=== PATIENT | female | born 1925 | race Caucasian/White ===

== ENCOUNTER 2017-06-17 17:34 | Inpatient (IN) | payer MEDICARE, MEDICAID ==
[~2017-06-17] VITALS: Ht 165.1 cm; Wt 92.7 kg
[~2017-06-17 17:34] MED LIST: ATEN25TA PO; PRED10PA PO
[2017-06-17 18:32] VITALS: BP 162/81; PULSE 120; RESP 24; TEMP 98.1; O2SAT 96
[2017-06-17 19:18] LABS: AUTOMATED NEUTROPHIL # 5.7 TH/MM3 (1.8-7.7); BASOPHIL # 0.1 TH/MM3 (0-0.2); BASOPHIL % 0.8 % (0.0-2.0); EOSINOPHIL % 0.1 % (0.0-4.0); HEMATOCRIT 39.6 % (35.0-46.0); HEMOGLOBIN 13.6 GM/DL (11.6-15.3); LYMPH % 8.7 % (9.0-44.0); LYMPHOCYTE # 0.7 TH/MM3 (1.0-4.8); MEAN CELL VOLUME 100.6 FL (80.0-100.0); MEAN CORPUSCULAR HEMOGLOBIN 34.4 PG (27.0-34.0); MEAN CORPUSCULAR HGB CONC 34.2 % (32.0-36.0); MEAN PLATELET VOLUME 8.9 FL (7.0-11.0); MONO % 17.8 % (0.0-8.0); MONOCYTE # 1.4 TH/MM3 (0-0.9); NEUT % 72.6 % (16.0-70.0); PLATELET COUNT 100 TH/MM3 (150-450); RED BLOOD COUNT 3.94 MIL/MM3 (4.00-5.30); RED CELL DISTRIBUTION WIDTH 15.1 % (11.6-17.2); WHITE BLOOD COUNT 7.8 TH/MM3 (4.0-11.0)
[2017-06-17 19:43] LABS: TROPONIN I 0.03 NG/ML (0.02-0.05)
[2017-06-17] MEDS ORDERED: DILTIAZEM HCL 25 MG/5 ML VIAL IV ONE (19:45)
[2017-06-17 19:46] LABS: BICARBONATE 25.2 MEQ/L (21.0-32.0); BLOOD UREA NITROGEN 14 MG/DL (7-18); CALCIUM 8.2 MG/DL (8.5-10.1); CHLORIDE 105 MEQ/L (98-107); CREATININE 1.01 MG/DL (0.50-1.00); GLOMERULAR FILTRATION RATE 52 ML/MIN (>89); GLUCOSE,RANDOM 102 MG/DL (74-106); SODIUM (NA) 138 MEQ/L (136-145)
[2017-06-17 19:52] VITALS: BP 170/79; PULSE 111; RESP 18; O2SAT 97
--- NOTE | 2017-06-17 19:58 | PD ---
HPI Chief Complaint: Respiratory Symptoms Time Seen by Provider: 19:13 Travel History International Travel<30 days: No Contact w/Intl Traveler<30days: No Traveled to known affect area: No History of Present Illness HPI 89yo F with unknown PMH presents to the ED stating she has pneumonia. States she was at another hospital 2 weeks ago and she had pneumonia and they didnt do anything. Said she is a little sob. Asked if she has chest pain, she points to midsternum and said a little. When ask further details, she said I dont know. She said she lives with her son. Poor historian. +Cough. Denies any fever, abdominal pain, focal weakness or numbness. PFSH Social History Tobacco Use: No Allergies-Medications (Allergen,Severity, Reaction): Coded Allergies: Penicillins (Verified Allergy, Intermediate, Swelling, 06/17/17) aspirin (Verified Allergy, Mild, 06/17/17) Sulfa (Sulfonamide Antibiotics) (Verified Allergy, Unknown, 06/17/17) Reported Meds & Prescriptions Reported Meds & Active Scripts Active Reported Aspirin 81 Mg Chew 81 Mg CHEW DAILY Review of Systems Except as stated in HPI: all other systems reviewed are Neg Physical Exam Narrative GENERAL: 89yo F in mild distress. SKIN: Focused skin assessment warm/dry. HEAD: Atraumatic. Normocephalic. EYES: Pupils equal and round. No scleral icterus. No injection or drainage. ENT: No nasal bleeding or discharge. Mucous membranes pink and moist. NECK: Trachea midline. No JVD. CARDIOVASCULAR: Irregular heart rate fluctuating from low 100s to 120s. RESPIRATORY: + accessory muscle use. Clear to auscultation. Breath sounds equal bilaterally. GASTROINTESTINAL: Abdomen soft, non-tender, nondistended. No rebound tenderness or guarding. MUSCULOSKELETAL: No obvious deformities. No clubbing. No cyanosis. +Bilateral lower extremity edema. NEUROLOGICAL: AAOx2. No obvious cranial nerve deficits. Motor grossly within normal limits in all extremities. Sensation intact. Normal speech. Data Data Last Documented VS Vital Signs Date Time Temp Pulse Resp B/P (MAP) Pulse Ox O2 Delivery O2 Flow Rate FiO2 06/17/17 19:52 116 18 96 Nasal Cannula 2.00 06/17/17 19:52 170/79 (109) 06/17/17 18:32 98.1 Orders Orders Electrocardiogram (06/17/17 18:53) Complete Blood Count With Diff (06/17/17 18:53) Basic Metabolic Panel (Bmp) (06/17/17 18:53) Ckmb (Isoenzyme) Profile (06/17/17 18:53) Troponin I (06/17/17 18:53) Chest, Single Ap (06/17/17 18:53) Iv Access Insert/Monitor (06/17/17 18:53) B-Type Natriuretic Peptide (06/17/17 18:53) Prothrombin Time / Inr (Pt) (06/17/17 19:29) Act Partial Throm Time (Ptt) (06/17/17 19:29) CKMB (06/17/17 18:55) CKMB% (06/17/17 18:55) Diltiazem Inj (Cardizem Inj) (06/17/17 20:00) Ondansetron Inj (Zofran Inj) (06/17/17 20:15) Admit Order (Ed Use Only) (06/17/17 21:12) Vital Signs (Adult) Q15MX4,Q4H (06/17/17 21:13) Exposure Machine Operator / Telemetry TAMMY.Q8H (06/17/17 21:13) Cardiac Rhythm TAMMY.Q8H (06/17/17 21:13) Notify Dr: Other (06/17/17 21:13) Diltiazem Inj (Cardizem Inj) (06/17/17 21:15) Labs Laboratory Tests Test 06/17/17 18:55 White Blood Count 7.8 TH/MM3 Red Blood Count 3.94 MIL/MM3 Hemoglobin 13.6 GM/DL Hematocrit 39.6 % Mean Corpuscular Volume 100.6 FL Mean Corpuscular Hemoglobin 34.4 PG Mean Corpuscular Hemoglobin Concent 34.2 % Red Cell Distribution Width 15.1 % Platelet Count 100 TH/MM3 Mean Platelet Volume 8.9 FL Neutrophils (%) (Auto) 72.6 % Lymphocytes (%) (Auto) 8.7 % Monocytes (%) (Auto) 17.8 % Eosinophils (%) (Auto) 0.1 % Basophils (%) (Auto) 0.8 % Neutrophils # (Auto) 5.7 TH/MM3 Lymphocytes # (Auto) 0.7 TH/MM3 Monocytes # (Auto) 1.4 TH/MM3 Eosinophils # (Auto) 0.0 TH/MM3 Basophils # (Auto) 0.1 TH/MM3 CBC Comment AUTO DIFF Differential Comment AUTO DIFF CONFIRMED Blood Urea Nitrogen 14 MG/DL Creatinine 1.01 MG/DL Random Glucose 102 MG/DL Calcium Level 8.2 MG/DL Sodium Level 138 MEQ/L Potassium Level 3.8 MEQ/L Chloride Level 105 MEQ/L Carbon Dioxide Level 25.2 MEQ/L Anion Gap 8 MEQ/L Estimat Glomerular Filtration Rate 52 ML/MIN Total Creatine Kinase 135 U/L Creatine Kinase MB 3.0 NG/ML Troponin I 0.03 NG/ML B-Type Natriuretic Peptide 191 PG/ML [facility] Medical Decision Making Medical Screen Exam Complete: Yes Emergency Medical Condition: Yes Interpretation(s) EKG: Afib at 124bpm. Normal axis. TWI diffusely. Differential Diagnosis Pneumonia vs. CHF exacerbation vs. ACS vs. afib RVR Narrative Course 89yo F with sob and chest pain for unknown about of time. Pt has afib on the monitor and heart rate is in the 110s to 120s. Unable to obtain good history from patient and there is no family member. Pt has not been here before. Will give cardizem 15mg IV since blood pressure is good to control heart rate. Will do cardiac work up. Labs reviewed, no leukocytosis. H/H normal. BNP mildly elevated at 191. Troponin negative. BMP unremarkable. CXR showed clear lungs. Pt was feeling nauseous so gave pt zofran. Pt given 15mg of cardizem and heart rate has decreased but fluctuates between 100s and 115. I called pt's daughter Mrs. Lolita Omalley at [phone] and she does not know her history well. Said she does have a history of irregular heart rate and was on anticoagulation but not sure what she is on now. Said she was recently admitted to [facility] and we will try to get record from them. She said she is not coming to the hospital since she is sick. Said her brother who lives a few blocks from her is also not coming to the hospital. Pt lives by herself with a room that she rented out. We call [facility] and they said they have no records of her. Pt reevaluated at bedside and HR is still high to 120s now. Will place on cardizem drip and admit. Discussed with Dr. Mackenzie and accepted to her service. Critical Care Narrative Aggregate critical care time was 35 minutes. Time to perform other separately billable procedures was not included in the critical care time. My time did not include minutes spent treating any other patients simultaneously or on activities that did not directly contribute to the patient's treatment. The services I provided to this patient were to treat and/or prevent clinically significant deterioration that could result in: cardiovascular collapse or . I provided critical care services requiring my management, as noted below: Chart data review, documentation time, medication orders and management, vital sign assessments/reviewing monitor data, ordering and reviewing lab tests, ordering and interpreting/reviewing x-rays and diagnostic studies, care of the patient and discussion of the patient with the admitting physicians. Diagnosis Primary Impression: Atrial fibrillation with RVR Admitting Information Admitting Physician Requests: Stacie Roger DO Jun 17, 2017 19:58
[2017-06-17] MEDS ORDERED: ASPI-516 CHEW (20:00)
[2017-06-17] MEDS ORDERED: DILTIAZEM HCL 50 MG/10 ML VIAL IV ONE (20:00)
[2017-06-17] MEDS ORDERED: ONDANSETRON HCL 4 MG/2 ML VIAL IV PUSH ONE (20:15)
--- NOTE | 2017-06-17 20:25 | RADRPT ---
EXAM DATE/TIME: 06/17/2017 20:02 [place] COMPARISON: No previous studies available for comparison. INDICATIONS : Short of breath. MEDICAL HISTORY : None. SURGICAL HISTORY : None. ENCOUNTER: Initial ACUITY: 1 day PAIN SCORE: 0/10 LOCATION: Bilateral chest FINDINGS: A single view of the chest demonstrates the lungs to be symmetrically aerated without evidence of mas s, infiltrate or effusion. The cardiomediastinal contours are unremarkable. Osseous structures are intact. CONCLUSION: The lungs are clear. Randall Velarde MD on June 17, 2017 at 20:24 Board Certified Radiologist. This report was verified electronically.
[2017-06-17] MEDS ORDERED: DILTIAZEM INJ 125 MG in SODIUM CHLORIDE 0.9% INJ 100 ML IV PRN (21:15)
[2017-06-17] MEDS ORDERED: LACTULOSE SYRUP 20 GM/30 ML CUP PO PRN (21:30)
[2017-06-17] MEDS ORDERED: SODIUM CHLORIDE 0.9% FLUSH 10 ML FLUSH IV FLUSH PRN (21:30)
[2017-06-17] MEDS ORDERED: BISACODYL 10 MG SUPP RECTAL PRN (21:30)
[2017-06-17] MEDS ORDERED: MAGNESIUM HYDROXIDE SUSP 30 ML CUP PO PRN (21:30)
[2017-06-17] MEDS ORDERED: ACETAMINOPHEN 325 MG TAB PO PRN (21:30)
[2017-06-17] MEDS ORDERED: ACETAMINOPHEN/HYDROcodone 325 MG/5 MG TAB PO PRN (21:30)
[2017-06-17] MEDS ORDERED: SENNOSIDES 8.6 MG TAB PO PRN (21:30)
--- NOTE | 2017-06-17 21:33 | HHI.HP ---
HPI Service [facility] Primary Care Physician Ranulfo Winters MD Admission Diagnosis Afib RVR, chest pain Diagnoses: (1) Atrial fibrillation with RVR Diagnosis: Principal (2) Chest pain Diagnosis: Principal (3) Thrombocytopenia Diagnosis: Principal (4) Renal insufficiency Diagnosis: Principal Travel History International Travel<30 Days: No Contact w/Intl Traveler <30 Da: No Traveled to Known Affected Are: No History of Present Illness This is an 89-year-old female with a PMH of A. fib on Eliquis was brought to the ER by EMS secondary to chest pain. Patient is extremely poor historian, unable to provide much history, however she is able to tell me she's had substernal chest pain for approximately 1 week. States pain is intermittent, 8/ 10, non-radiating, associated w/ cough. Reports being seen in [facility] last week for similar symptoms and was found to have PNA but "they didn't do anything ". On arrival, found to be in A-fib w/ RVR, HR 120-130's. Pt unable to tell me if she has h/o A-fib however per review of discharge papers from [facility] , she is on multiple medications including Amiodarone, Cardizem and Eliquis. BP currently 162/81, HR 120, O2 sat 96% on RA, Afebrile. DC essentially unremarkable except for platelets 100, no previous labs for comparison. Chemistry unremarkable except for creatinine 1.01, GFR 52. Troponin 0.03. BNP 191. CXR with no acute findings. S/p Cardizem in ER however HR 120's, started on Cardizem gtt. States she follows w/ a [facility] Technician at , but unable to tell me his name, states it "starts with an S". Review of Systems Except as stated in HPI: all other systems reviewed are Neg ROS: 14 point review of systems otherwise negative. Past Family Social History Past Medical History PMH: A. fib on Eliquis Past Surgical History PAST SURGICAL HISTORY: Hiatal Hernia Repair, Appendectomy, Cholecystectomy, Hysterectomy Allergies: Coded Allergies: Penicillins (Verified Allergy, Intermediate, Swelling, 06/17/17) aspirin (Verified Allergy, Mild, 06/17/17) Sulfa (Sulfonamide Antibiotics) (Verified Allergy, Unknown, 06/17/17) Family History PAST FAMILY HISTORY: Reviewed. No h/o DM or CAD Social History PAST SOCIAL HISTORY: Negative for alcohol, tobacco or drugs. Physical Exam Vital Signs Vital Signs Date Time Temp Pulse Resp B/P (MAP) Pulse Ox O2 Delivery O2 Flow Rate FiO2 06/17/17 19:52 116 18 96 Nasal Cannula 2.00 06/17/17 19:52 111 18 170/79 (109) 97 Nasal Cannula 2.00 06/17/17 18:32 98.1 120 24 162/81 (108) 96 Physical Exam PE: GENERAL: Elderly white female in no acute distress, very [place]. HEENT: PERRLA, EOMI. No scleral icterus or conjunctival pallor. No lid lag or facial droop. CARDIOVASCULAR: Irregularly irregular, in A. fib. No obvious murmurs to auscultation. No chest tenderness to palpation. RESPIRATORY: No obvious rhonchi or wheezing. Clear to auscultation. Breath sounds equal bilaterally. GASTROINTESTINAL: Abdomen soft, non-tender, nondistended. BS normal. MUSCULOSKELETAL: Extremities without clubbing, cyanosis. 2+ edema. No obvious deformities. NEUROLOGICAL: Awake, alert and oriented x4. No focal neurologic deficits. Moving both upper and lower extremities spontaneously. Laboratory Laboratory Tests Test 06/17/17 18:55 White Blood Count 7.8 Red Blood Count 3.94 Hemoglobin 13.6 Hematocrit 39.6 Mean Corpuscular Volume 100.6 Mean Corpuscular Hemoglobin 34.4 Mean Corpuscular Hemoglobin Concent 34.2 Red Cell Distribution Width 15.1 Platelet Count 100 Mean Platelet Volume 8.9 Neutrophils (%) (Auto) 72.6 Lymphocytes (%) (Auto) 8.7 Monocytes (%) (Auto) 17.8 Eosinophils (%) (Auto) 0.1 Basophils (%) (Auto) 0.8 Neutrophils # (Auto) 5.7 Lymphocytes # (Auto) 0.7 Monocytes # (Auto) 1.4 Eosinophils # (Auto) 0.0 Basophils # (Auto) 0.1 CBC Comment AUTO DIFF Differential Comment AUTO DIFF CONFIRMED Blood Urea Nitrogen 14 Creatinine 1.01 Random Glucose 102 Calcium Level 8.2 Sodium Level 138 Potassium Level 3.8 Chloride Level 105 Carbon Dioxide Level 25.2 Anion Gap 8 Estimat Glomerular Filtration Rate 52 Total Creatine Kinase 135 Creatine Kinase MB 3.0 Troponin I 0.03 B-Type Natriuretic Peptide 191 Result Diagram: 06/17/17185406/17/171854 Caprini VTE Risk Assessment Caprini VTE Risk Assessment: Mod/High Risk (score >= 2) Caprini Risk Assessment Model Point Value = 1 Point Value = 2 Point Value = 3 Point Value = 5 Age 41-60 Minor surgery BMI > 25 kg/m2 Swollen legs Varicose veins or History of unexplained or recurrent spontaneous Oral contraceptives or hormone replacement Sepsis (< 1 month) Serious lung disease, including pneumonia (< 1 month) Abnormal pulmonary function Acute myocardial infarction Congestive heart failure (< 1 month) History of inflammatory bowel disease Medical patient at bed rest Age 61-74 Arthroscopic surgery Major open surgery (> 45 min) Laparoscopic surgery (> 45 min) Malignancy Confined to bed (> 72 hours) Immobilizing plaster cast Central venous access Age >= 75 History of VTE Family history of VTE Factor V Leiden Prothrombin [id number] Lupus anticoagulant Anticardiolipin antibodies Elevated serum homocysteine Heparin-induced thrombocytopenia Other congenital or acquired thrombophilia Stroke (< 1 month) Elective arthroplasty Hip, pelvis, or leg fracture Acute spinal cord injury (< 1 month) Prophylaxis Regimen Total Risk Factor Score Risk Level Prophylaxis Regimen 0-1 Low Early ambulation 2 Moderate Order ONE of the following: *Sequential Compression Device (SCD) *Heparin 5000 units SQ BID 3-4 Higher Order ONE of the following medications: *Heparin 5000 units SQ TID *Enoxaparin/Lovenox 40 mg SQ daily (WT < 150 kg, CrCl > 30 mL/min) *Enoxaparin/Lovenox 30 mg SQ daily (WT < 150 kg, CrCl > 10-29 mL/min) *Enoxaparin/Lovenox 30 mg SQ BID (WT < 150 kg, CrCl > 30 mL/min) AND/OR *Sequential Compression Device (SCD) 5 or more Highest Order ONE of the following medications: *Heparin 5000 units SQ TID (Preferred with Epidurals) *Enoxaparin/Lovenox 40 mg SQ daily (WT < 150 kg, CrCl > 30 mL/min) *Enoxaparin/Lovenox 30 mg SQ daily (WT < 150 kg, CrCl > 10-29 mL/min) *Enoxaparin/Lovenox 30 mg SQ BID (WT < 150 kg, CrCl > 30 mL/min) AND *Sequential Compression Device (SCD) Assessment and Plan Problem List: (1) Atrial fibrillation with RVR ICD Code: I48.91 - Unspecified atrial fibrillation Status: Acute (2) Chest pain ICD Code: R07.9 - Chest pain, unspecified (3) Renal insufficiency ICD Code: N28.9 - Disorder of kidney and ureter, unspecified (4) Thrombocytopenia ICD Code: D69.6 - Thrombocytopenia, unspecified Assessment and Plan A/P: 1. A-fib w/ RVR: h/o A-fib per records from recent presentation to [facility] , on Amiodarone 200mg qd, Diltiazem 360mg qd and Eliquis 2.5mg bid. Currently on Cardizem gtt, wean as tolerated. Admit to [facility]IC, Telemetry. Follows w/ [facility] Technician at , unable to tell me who. Will consult Cardiology for further recommendations. 2. Chest Pain: Likely secondary to dysrhythmia. R/o ACS. Initial troponin negative, check serial cardiac enzymes to eval for underlying ischemia. NTG/ Morphine prn as needed. ALLERGY to ASA. Resume home Plavix. 3. Renal Insufficiency: Creatinine 1.01, no previous labs for comparison. IVF , caution with fluid overload, repeat labs in am. 4. Thrombocytopenia: Platelets 100, no previous labs for comparison. No active bleeding. Will monitor closely. Repeat labs in a.m. 5. DVT Prophylaxis: On Eliquis 6. Social work for d/c planning as needed. 7. Case discussed w/ ER physician at length, labs/records/imaging reviewed by ri Physician Certification 2 Midnight Certification Type: Admission for Inpatient Services Order for Inpatient Services The services are ordered in accordance with Medicare regulations or non- Medicare payer requirements, as applicable. In the case of services not specified as inpatient-only, they are appropriately provided as inpatient services in accordance with the 2-midnight benchmark. Estimated LOS (days): 2 days is the estimated time the patient will need to remain in the hospital, assuming treatment plan goals are met and no additional complications. Post-Hospital Plan: Not yet determined Yolanda Mackenzie MD Jun 17, 2017 21:33
[2017-06-17 21:43] VITALS: BP 166/98; PULSE 114; RESP 18; O2SAT 94
[2017-06-17 22:30] VITALS: BP 177/76; PULSE 105; RESP 16; O2SAT 92
[2017-06-17 22:57] LABS: INTERNATIONAL NORMALIZED RATIO 1.4 RATIO; PROTHROMBIN TIME - PATIENT 13.8 SEC (9.8-11.6)
[2017-06-17 23:02] VITALS: BP 128/74; PULSE 98; RESP 18; O2SAT 88
[2017-06-18] VITALS (14 sets, daily range): BP systolic 151–172; BP diastolic 70–81; PULSE 73–112; RESP 16–23; TEMP 97.6–98.3; O2SAT 94–97
[2017-06-18] MEDS ORDERED: DILT120T PO (01:02)
[2017-06-18] MEDS ORDERED: PLAV75TA29 PO (01:02)
[2017-06-18] MEDS ORDERED: DIAZ5TAB PO (01:02)
[2017-06-18] MEDS ORDERED: AMIO200T PO (01:02)
[2017-06-18] MEDS ORDERED: APIX2.5T PO (01:02)
[2017-06-18] MEDS: ZOLPIDEM TARTRATE 5 MG TAB PO PRN ×2 (04:30→22:44)
[2017-06-18 05:09] LABS: AUTOMATED NEUTROPHIL # 5.3 TH/MM3 (1.8-7.7); BASOPHIL # 0.1 TH/MM3 (0-0.2); BASOPHIL % 1.5 % (0.0-2.0); EOSINOPHIL % 0.2 % (0.0-4.0); HEMOGLOBIN 12.9 GM/DL (11.6-15.3); LYMPH % 9.8 % (9.0-44.0); LYMPHOCYTE # 0.7 TH/MM3 (1.0-4.8); MEAN CELL VOLUME 100.9 FL (80.0-100.0); MEAN CORPUSCULAR HEMOGLOBIN 34.3 PG (27.0-34.0); MEAN PLATELET VOLUME 9.1 FL (7.0-11.0); MONO % 13.1 % (0.0-8.0); MONOCYTE # 0.9 TH/MM3 (0-0.9); NEUT % 75.4 % (16.0-70.0); PLATELET COUNT 82 TH/MM3 (150-450); RED BLOOD COUNT 3.77 MIL/MM3 (4.00-5.30); RED CELL DISTRIBUTION WIDTH 14.9 % (11.6-17.2); WHITE BLOOD COUNT 7.1 TH/MM3 (4.0-11.0)
[2017-06-18 05:36] LABS: ALBUMIN 2.3 GM/DL (3.4-5.0); ALT (GPT) 54 U/L (10-53); AST (GOT) 48 U/L (15-37); BLOOD UREA NITROGEN 12 MG/DL (7-18); CALCIUM 7.6 MG/DL (8.5-10.1); CHLORIDE 106 MEQ/L (98-107); CREATININE 0.91 MG/DL (0.50-1.00); GLOMERULAR FILTRATION RATE 58 ML/MIN (>89); GLUCOSE,RANDOM 83 MG/DL (74-106); SODIUM (NA) 139 MEQ/L (136-145)
[2017-06-18 05:39] LABS: ALKALINE PHOSPHATASE 140 U/L (45-117); TOTAL BILIRUBIN ADULT 0.6 MG/DL (0.2-1.0); TOTAL PROTEIN 5.3 GM/DL (6.4-8.2); TROPONIN I 0.04 NG/ML (0.02-0.05)
[2017-06-18] MEDS ORDERED: HEPARIN SODIUM - SQ 10,000 UNITS/ML VIAL SQ SCH (09:00)
[2017-06-18] MEDS: SODIUM CHLORIDE 0.9% FLUSH 10 ML FLUSH IV FLUSH SCH ×2 (09:00→22:46)
[2017-06-18 09:03] LABS: BANDS 6 % (0-6); LYMPHOCYTES 3 % (9-44); MONOCYTES 10 % (0-8); MYELOCYTES 2 % (0-0); NEUTROPHIL # MANUAL DIFF 6.2 TH/MM3 (1.8-7.7); POLYS (SEG NEUTROPHILS) 79 % (16-70)
[2017-06-18] MEDS: APIXABAN 2.5 MG TABLET PO SCH ×2 (09:07→22:45)
[2017-06-18] MEDS: CLOPIDOGREL 75 MG TAB PO SCH (09:08)
[2017-06-18] MEDS: DOCUSATE SODIUM 50 MG/SENNA 8.6 MG TAB PO SCH ×2 (09:08→22:45)
--- NOTE | 2017-06-18 09:44 | HHI.PR ---
Subjective Remarks Follow up a-fib with RVR. Patient states that she feels a little better today. She is a poor historian and changes the description of her symptoms frequently. She describes chest discomfort, but then refers to it as shortness of breath. She states that she "cannot walk". She states that she was recently admitted to a different hospital and reportedly had a thoracentesis. Objective Vitals Vital Signs Date Time Temp Pulse Resp B/P (MAP) Pulse Ox O2 Delivery O2 Flow Rate FiO2 06/18/17 07:00 92 16 151/70 (97) 96 Nasal Cannula 2.00 06/18/17 06:14 99 16 172/78 (109) 96 Nasal Cannula 2.00 06/18/17 03:00 99 16 158/71 (100) 97 Nasal Cannula 2.00 06/18/17 02:30 98 16 160/76 (104) 97 Nasal Cannula 2.00 06/18/17 02:00 106 16 152/71 (98) 97 Nasal Cannula 2.00 06/18/17 01:50 97 Nasal Cannula 2.00 06/18/17 01:15 116 158/72 06/18/17 00:30 110 16 172/81 (111) 97 06/17/17 23:02 88 Nasal Cannula 2.00 06/17/17 23:02 98 18 128/74 (92) 88 Nasal Cannula 2.00 06/17/17 22:30 105 16 177/76 (109) 92 Room Air 06/17/17 22:11 120 165/79 06/17/17 21:43 114 18 166/98 (120) 94 Room Air 06/17/17 19:52 116 18 96 Nasal Cannula 2.00 06/17/17 19:52 111 18 170/79 (109) 97 Nasal Cannula 2.00 06/17/17 18:32 98.1 120 24 162/81 (108) 96 I/O 06/17/17 06/17/17 06/17/17 06/18/17 06/18/17 06/18/17 07:00 15:00 23:00 07:00 15:00 23:00 # Voids 1 Result Diagram: 06/18/17 0416 06/18/17 0416 Imaging Last Impressions Chest X-Ray 06/17/17 3619 Signed Impressions: Service Date/Time: Saturday, June 17, 2017 20:02 - CONCLUSION: The lungs are clear. Randall Velarde MD Objective Remarks General: Elderly female in no acute distress. Heart: Irregular, tachycardic. Lungs: Clear to auscultation bilaterally. No wheezes, rales, or rhonchi. Breathing is nonlabored. Abdomen: Soft, nontender, nondistended. Extremities: 1+ bilateral lower extremity edema. Psych: Alert, oriented, answers questions appropriately. Neuro: No focal deficits noted. Procedures None Urinary Catheter: No Vascular Central Line Catheter: No A/P Problem List: (1) Atrial fibrillation with RVR ICD Code: I48.91 - Unspecified atrial fibrillation Status: Acute (2) Chest pain ICD Code: R07.9 - Chest pain, unspecified (3) Renal insufficiency ICD Code: N28.9 - Disorder of kidney and ureter, unspecified (4) Thrombocytopenia ICD Code: D69.6 - Thrombocytopenia, unspecified Assessment and Plan 1. A. fib with RVR: Currently on Cardizem drip. Recently discharged from [facility] on amiodarone, diltiazem, Eliquis. Restart oral diltiazem and wean off Cardizem drip as tolerated. Restart amiodarone. Cardiology consult pending. Monitor on telemetry. Admit to CIC. 2. Chest pain: Likely secondary to arrhythmia. Serial cardiac enzymes are negative. Patient has reported allergy to aspirin. Continue Plavix. 3. Renal insufficiency: Improving. Gentle IV fluid hydration. 4. Thrombocytopenia: Platelets decreased today. Monitor labs. Monitor for bleeding. 5. Elevated LFTs: Uncertain etiology. Monitor labs. 6. DVT prophylaxis: Eliquis. Discharge Planning Pending further clinical improvement. Pio Marcelino MD Jun 18, 2017 09:44
[2017-06-18] MEDS ORDERED: NS + KCL 20 MEQ INJ 1,000 ML IV SCH (09:45)
[2017-06-18] MEDS: AMIODARONE 200 MG TAB PO SCH (10:41)
[2017-06-18] MEDS: PANTOPRAZOLE SOD 40 MG DELAYED RELEASE TAB PO SCH ×2 (10:41→22:46)
[2017-06-18] MEDS: DILTIAZEM-CD 180 MG CAP ER PO SCH (10:41)
[2017-06-18] MEDS: SUCRALFATE 1 GM TAB PO SCH ×3 (12:06→22:45)
--- NOTE | 2017-06-18 19:00 | EKG ---
Date Performed: 06/17/2017 Time Performed: 19:35:38 PTAGE: 89 years EKG: ATRIAL FIBRILLATION WITH RAPID VENTRICULAR RESPONSE ANTEROSEPTAL MYOCARDIAL INFARCTION MODE RATE T-WAVE ABNORMALITY, CONSIDER LATERAL ISCHEMIA MODERATE T-WAVE ABNORMALITY, CONSIDER INFERIOR ISC HEMIA The rhythm is probably atrial fibrillation, but I cannot entirely exclude multifocal atrial tac hycardia. Compared to previous tracing, the Supraventricular tachycardia is new. The marked and diffu se nonspecific ST-T changes are new. Clinical correlation will be important to assess the serial florian ges ABNORMAL ECG NO PREVIOUS TRACING DOCTOR: Lauren Cobos Interpretating Date/Time 06/18/2017 18:59:54
[2017-06-18] MEDS: RESP: ALBUTEROL 2.5 MG/3 ML NEB (PRN) INH (19:46)
[2017-06-18] MEDS: ONDANSETRON HCL 4 MG/2 ML VIAL IVP PRN (22:44)
[2017-06-19] VITALS (10 sets, daily range): BP systolic 137–171; BP diastolic 57–84; PULSE 79–114; RESP 19–24; TEMP 98.4–100; O2SAT 94–98
[2017-06-19] MEDS: DIAZEPAM 5 MG TAB PO PRN ×2 (03:57→10:24)
[2017-06-19] MEDS: RESP: ALBUTEROL 2.5 MG/3 ML NEB (PRN) INH (04:08)
[2017-06-19 08:47] LABS: AUTOMATED NEUTROPHIL # 5.1 TH/MM3 (1.8-7.7); BASOPHIL % 0.4 % (0.0-2.0); EOSINOPHIL % 0.1 % (0.0-4.0); HEMATOCRIT 37.5 % (35.0-46.0); HEMOGLOBIN 12.7 GM/DL (11.6-15.3); LYMPH % 13.7 % (9.0-44.0); MEAN CELL VOLUME 102.2 FL (80.0-100.0); MEAN CORPUSCULAR HEMOGLOBIN 34.7 PG (27.0-34.0); MEAN CORPUSCULAR HGB CONC 33.9 % (32.0-36.0); MEAN PLATELET VOLUME 9.9 FL (7.0-11.0); MONO % 14.2 % (0.0-8.0); NEUT % 71.6 % (16.0-70.0); PLATELET COUNT 71 TH/MM3 (150-450); RED BLOOD COUNT 3.67 MIL/MM3 (4.00-5.30); RED CELL DISTRIBUTION WIDTH 15.3 % (11.6-17.2); WHITE BLOOD COUNT 7.1 TH/MM3 (4.0-11.0)
[2017-06-19 09:14] LABS: ALBUMIN 2.1 GM/DL (3.4-5.0); BICARBONATE 25.3 MEQ/L (21.0-32.0); CALCIUM 7.3 MG/DL (8.5-10.1); CALCIUM-PROTEIN CORRECTED 8.4 MG/DL (8.5-10.1); CREATININE 0.88 MG/DL (0.50-1.00); MAGNESIUM 1.8 MG/DL (1.5-2.5); TOTAL BILIRUBIN ADULT 0.5 MG/DL (0.2-1.0); TOTAL PROTEIN 5.1 GM/DL (6.4-8.2)
[2017-06-19] MEDS: APIXABAN 2.5 MG TABLET PO SCH ×2 (09:47→19:46)
[2017-06-19] MEDS: SUCRALFATE 1 GM TAB PO SCH ×4 (09:47→19:47)
[2017-06-19] MEDS: PANTOPRAZOLE SOD 40 MG DELAYED RELEASE TAB PO SCH ×2 (09:47→19:47)
[2017-06-19] MEDS: SODIUM CHLORIDE 0.9% FLUSH 10 ML FLUSH IV FLUSH SCH ×2 (09:48→19:48)
[2017-06-19] MEDS: CLOPIDOGREL 75 MG TAB PO SCH (09:48)
[2017-06-19] MEDS: AMIODARONE 200 MG TAB PO SCH (09:48)
[2017-06-19] MEDS: DILTIAZEM-CD 180 MG CAP ER PO SCH (09:48)
[2017-06-19] MEDS: DOCUSATE SODIUM 50 MG/SENNA 8.6 MG TAB PO SCH ×2 (09:48→19:47)
--- NOTE | 2017-06-19 09:48 | MB ---
cc: José Antonio Phillips DO DATE OF CONSULT: 06/18/2017 IMPRESSION: 1. Chest discomfort. 2. Atrial fibrillation with rapid ventricular response rate. 3. Atherosclerotic heart disease, history of acute coronary syndrome culminating in cardiac catheterization and percutaneous coronary intervention, with a stent possibly in the left anterior descending in the remote past. 4. Normal nuclear stress test in 2011. 5. Hypertension. 6. Chronic obstructive pulmonary disease. 7. Thrombocytopenia. 8. Mild renal insufficiency. 9. Advanced age. 10. History of stroke. 11. Anxiety disorder. 12. History of irritable bowel syndrome. HISTORY OF PRESENT ILLNESS: The patient may need an extended care facility. She lives alone. 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 She cannot recall if she has been taking her medications and I suspect noncompliance contributing. The patient is an 89-year-old female who is admitted to the hospital with chest discomfort. She was found to have atrial fibrillation with rapid ventricular response rate. She was admitted to [facility] with similar scenario in April 2017. As I recall, she may have had pneumonia at that time. MEDICATIONS: Her medications that she is supposed to be taking include amiodarone 200 milligrams daily, Eliquis 2.5 milligrams twice a day, Cardizem CD 360 milligrams daily, Plavix 75 daily, Protonix 40 milligrams daily. ALLERGIES: PENICILLIN, ASPIRIN AND SULFA DRUGS. PAST SURGICAL HISTORY: Includes cardiac catheterization with PCI, hiatal hernia repair, appendectomy, cholecystectomy and hysterectomy. REVIEW OF SYSTEMS: She has no history of congestive heart failure or ventricular arrhythmias. She tells me that she has had a stroke or a TIA. She has history of COPD. Was a cigarette smoker in the past. She has a history of esophageal reflux disease. No history of liver disease. She does have mild renal insufficiency. Her chest discomfort is described as mid sternal pressure, nonradiating. She is chronically short of breath. She has had no syncope or falls. She has had no lower extremity edema. The patient is currently pain free. Enzymes are negative. ECHOCARDIOGRAM: With rapid ventricular response rate demonstrated. Nonspecific ST-T changes. PHYSICAL EXAMINATION: GENERAL: At this time demonstrates an alert and oriented female, resting quietly. She was breathing oxygen per nasal canula. VITAL SIGNS: Blood pressure 150/70, heart rate is 90, irregularly irregular. HEENT: Anicteric sclerae. NECK: Jugular venous pressures are normal. Carotid upstrokes are brisk with no bruit. PULMONARY: She has wheezing bilaterally. CARDIOVASCULAR: Irregular irregularly rhythm. There is no S3. There is a 1/6 systolic ejection murmur. ABDOMEN: Soft, nontender. EXTREMITIES: Demonstrate trace edema. PERTINENT LABORATORY STUDIES ON ADMISSION: White cell count 7,800, hematocrit 40% macrocytic indices, platelet count 100,000, which is down to 82,000 today. Cardiac enzyme is normal x 3. Electrolytes 138, 3.8, 105, 25, with a BUN of 14, creatinine 1.01. GFR of 52. Random blood sugar 102. Echocardiogram on admission, atrial fibrillation. Incomplete left bundle branch block. Poor R-wave progression and diffuse, but nonspecific ST-T changes. Chest x-ray demonstrates borderline cardiomegaly. Clear gutters, with no effusions. There is minimal cephalization. DISCUSSION: This is an 89-year-old female admitted to the hospital with atrial fibrillation, rapid ventricular response rate, likely related to noncompliance with medications. Of concern is her falling platelet count. If her platelet count falls below 70,000, I would hold Plavix and Eliquis. The patient has had a normal nuclear perfusion imaging study since her PCI. Although she is somewhat of a poor historian, I do not know the exact date of her original acute coronary syndrome. She is wheezing. At this point in time, we will write for aerosol treatments. Resume all of her medications. Watch her platelet count closely. The patient should see outreach and education social worker regarding ECF placement. DO SYLVESTER Fink/NATHAN , 05:57 PM , 07:20 PM
--- NOTE | 2017-06-19 13:51 | HHI.PR ---
Subjective Remarks Follow up A. fib with RVR, thrombocytopenia. The patient is confused. She states that she does not feel well today. She denies chest pain or dyspnea. She does report nausea, but no vomiting. She states that there is nothing I can do to make things better and that she is going to . She requests hospice. Objective Vitals Vital Signs Date Time Temp Pulse Resp B/P (MAP) Pulse Ox O2 Delivery O2 Flow Rate FiO2 06/19/17 12:00 98.9 110 20 171/79 (109) 95 06/19/17 09:00 95 Nasal Cannula 2.00 06/19/17 08:00 108 06/19/17 08:00 98.6 102 24 168/78 (108) 96 06/19/17 04:37 87 06/19/17 04:08 98 Nasal Cannula 2.00 06/19/17 04:00 98.4 79 20 144/65 (91) 98 06/19/17 00:11 105 06/19/17 00:00 100.0 110 20 137/57 (83) 94 06/18/17 20:00 97.6 112 19 160/73 (102) 94 06/18/17 19:58 94 06/18/17 19:46 95 Nasal Cannula 2.00 06/18/17 16:00 96 06/18/17 15:15 94 06/18/17 15:00 98.3 73 23 154/74 (100) 94 I/O 06/18/17 06/18/17 06/18/17 06/19/17 06/19/17 06/19/17 06:59 14:59 22:59 06:59 14:59 22:59 Intake Total 240 ml Balance 240 ml Intake Oral 240 ml # Voids 1 4 # Bowel Movements 1 Result Diagram: 06/19/17 0748 06/19/17 0748 Imaging Last Impressions Chest X-Ray 06/17/17 5548 Signed Impressions: Service Date/Time: Saturday, June 17, 2017 20:02 - CONCLUSION: The lungs are clear. Randall Velarde MD Objective Remarks General: Elderly female in no acute distress. Heart: Irregular. Lungs: Clear to auscultation bilaterally. No wheezes, rales, or rhonchi. Breathing is nonlabored. Abdomen: Soft, nontender, nondistended. Extremities: 1+ bilateral lower extremity edema. Psych: Alert, confused, answers questions appropriately. States that we are in [facility]. States that the year is 1921 and it is "the second month". Neuro: No focal deficits noted. Procedures None Urinary Catheter: No Vascular Central Line Catheter: No A/P Problem List: (1) Atrial fibrillation with RVR ICD Code: I48.91 - Unspecified atrial fibrillation Status: Acute (2) Chest pain ICD Code: R07.9 - Chest pain, unspecified (3) Renal insufficiency ICD Code: N28.9 - Disorder of kidney and ureter, unspecified (4) Thrombocytopenia ICD Code: D69.6 - Thrombocytopenia, unspecified Assessment and Plan 1. A. fib with RVR: Cardizem drip discontinued. Recently discharged from [facility]. Continue amiodarone, Cardizem CD. Appreciate cardiology recommendations. Eliquis for anticoagulation. Monitor on telemetry. 2. Chest pain: Likely secondary to arrhythmia. Serial cardiac enzymes are negative. Patient has reported allergy to aspirin. Continue Plavix. 3. Renal insufficiency: Improving. Gentle IV fluid hydration. 4. Thrombocytopenia: Platelets decreased today. Monitor labs. Monitor for bleeding. Consult hematology. If platelets continue decreasing, will need to stop Eliquis. 5. Elevated LFTs: Uncertain etiology. Monitor labs. 6. DVT prophylaxis: Eliquis. Discussed with patient's granddaughter. Will consult Palliative care. Some members of the family are open to hospice, but others may favor more aggressive care. Discharge Planning Pending further clinical improvement. Pio Marcelino MD Jun 19, 2017 13:51
[2017-06-19] MEDS: ONDANSETRON HCL 4 MG/2 ML VIAL IVP PRN ×2 (14:38→22:10)
[2017-06-19] MEDS: MORPHINE SULFATE 2 MG/ML INJ IV PUSH PRN ×3 (14:38→22:03)
--- NOTE | 2017-06-19 16:41 | PD.CONS ---
Consult Service Palliative Care Consult Requested By Dr. Marcelino Primary Care Physician Ranulfo Winters MD Reason for Consultation a. To assist with evaluation and management of symptoms including: Nausea, pain b. To assist medical decision maker(s) with: better understanding of current medical conditions; weighing benefits/burdens of medical treatment options; making medical treatment decisions. HPI History of Present Illness This is an 89-year-old female who has had multiple hospitalizations at [facility] recently for recurrent pain and nausea. The family felt that she was not receiving appropriate care and on brought her to [place]. She describes her pain in multiple areas of the body to include intermittent chest discomfort, thought to be related to atrial fibrillation versus atherosclerotic heart disease, abdominal pain possibly related to gastritis, muscle and joint pain likely due to old age and osteoarthritis. She is noncompliant with pain medications and states "she wants to go to [facility]". She had been living at home independently however reports that for the last 2 months she has been unable to get to the bathroom most of the time and has now resorted to using a bedpan. She summoned emergency services to her home with a complaint of shortness of breath which occurs on exertion. She complained of a cough for 3 days which was nonproductive. She was able to stand and pivot to the stretcher with assistance. ED course: * Electrocardiogram showed atrial fibrillation with a rapid ventricular response of 124 bpm, with moderate T-wave abnormality suspicious for inferior lateral ischemia. * Vital signs: Blood pressure 170/79, heart rate 116, respiratory rate 18, oxygen saturation 96% on 2 L nasal cannula, temperature 98.1. * Laboratory: WBC 7.8, hemoglobin 13.6, hematocrit 39.6, platelets 100, sodium 138, potassium 3.8, BUN 14, creatinine 1.01, troponin 0 0.03, B natruretic peptide 191. * Radiology: Chest x-ray shows no mass infiltrate or effusion with unremarkable cardiomediastinal contours. Osseous structures are intact. Palliative care was consulted to assist with goals of care and symptom management. Patient is seen to be an elderly woman lying in bed with her granddaughter, her son and her daughter at bedside. She has been refusing her medications to include Carafate and her blood thinners. She says the pills make her sick to her stomach. She states that she is in pain at 6/10. She is refusing food and fluid. All she wants is a lemon popsicle. She is intermittently confused as to date and time but is able to provide a review of systems, psychosocial and social history. She stresses that her goal is comfort and that she wants her pain controlled and not to take a lot of pills. . Function/Cognitive Trajectory She has had multiple recent hospitalizations and has become progressively more debilitated. Prior to admission to the hospital she was having difficulty ambulating from bed to bathroom and had taken to using a bedpan. She is having some intermittent confusion now and is beginning to ask for relatives that are . . Review of Systems ROS Limitations: Altered Mental Status Constitutional: COMPLAINS OF: Change in appetite, Pain, Generalized weakness Endocrine: DENIES: Abnorml menstrual pattern, Heat/cold intolerance, Polydipsia , Polyuria, Polyphagia Eyes: DENIES: Blurred vision, Diplopia, Eye inflammation, Eye pain, Vision loss , Photosensitivity, Double Vision, Blind spots Respiratory: COMPLAINS OF: Cough Cardiovascular: COMPLAINS OF: Chest pain, Palpitations, Dyspnea on Exertion Gastrointestinal: COMPLAINS OF: Abdominal pain, Nausea, Dyspepsia or heartburn Genitourinary: DENIES: Abnormal vaginal bleeding, Dysmenorrhea, Dyspareunia, Sexual dysfunction, Urinary frequency, Urinary incontinence, Urgency, Hematuria , Dysuria, Nocturia, Vaginal discharge, Hesitancy, Dribbling, Decreased stream Musculoskeletal: COMPLAINS OF: Joint pain, Muscle aches Integumentary: DENIES: Abnormal pigmentation, Pruritus, Rash, Nail changes, Breast masses, Breast skin changes, Nipple discharge, Nodules, Tumors, Excessive dryness, Non-healing sores Hematologic/Lymphatics: DENIES: Bruising, Lymphadenopathy, Prolonged bleed w/ proced, History of transfusions Immunologic/Allergic: DENIES: Eczema, Urticaria Neurologic: COMPLAINS OF: Poor Balance Psychiatric: COMPLAINS OF: Confusion Past Family Social History Coded Allergies: Penicillins (Verified Allergy, Intermediate, Swelling, 06/17/17) aspirin (Verified Allergy, Mild, 06/17/17) Sulfa (Sulfonamide Antibiotics) (Verified Allergy, Unknown, 06/17/17) Past Medical History Atrial fibrillation with rapid ventricular response Chest discomfort with atrial fibrillation Atherosclerotic heart disease History of acute coronary syndrome status post PCI with stent in the LAD Normal nuclear stress 2011 Hypertension COPD Thrombocytopenia Mild renal insufficiency CVA Anxiety disorder IBS . Past Surgical History Hiatal Hernia Repair Appendectomy Cholecystectomy Hysterectomy Cardiac catheterization with PCI EGD Colonoscopy . Reported Medications Reported Meds & Active Scripts Active Reported Diltiazem (Diltiazem HCl) 120 Mg Tab 360 Mg PO Diazepam 5 Mg Tab 5 Mg PO TID PRN Plavix (Clopidogrel Bisulfate) 75 Mg Tab 75 Mg PO DAILY Eliquis (Apixaban) 2.5 Mg Tab 2.5 Mg PO BID Amiodarone (Amiodarone HCl) 200 Mg Tab 200 Mg PO DAILY Aspirin 81 Mg Chew 81 Mg CHEW DAILY . Current Medications Medications (Trade) Dose Ordered Sig/Ellie Route Start Time Stop Time Status Last Admin (Eliquis) 2.5 mg BID PO 06/18/17 09:00 06/19/17 09:47 (Plavix) 75 mg DAILY PO 06/18/17 09:00 06/19/17 09:48 (NS Flush) 2 ml UNSCH PRN IV FLUSH 06/17/17 21:30 (NS Flush) 2 ml BID IV FLUSH 06/18/17 09:00 06/19/17 09:48 (Zofran Inj) 4 mg Q6H PRN IVP 06/17/17 21:30 06/19/17 14:38 (Tylenol) 650 mg Q6H PRN PO 06/17/17 21:30 06/19/17 02:05 (York 5-325 Mg) 1 tab Q4H PRN PO 06/17/17 21:30 (Morphine Inj) 2 mg Q3H PRN IV PUSH 06/17/17 21:30 06/19/17 14:38 (Anny-Colace) 1 tab BID PO 06/18/17 09:00 06/19/17 09:48 (Milk Of Magnesia Liq) 30 ml Q12H PRN PO 06/17/17 21:30 (Senokot) 17.2 mg Q12H PRN PO 06/17/17 21:30 (Dulcolax Supp) 10 mg DAILY PRN RECTAL 06/17/17 21:30 (Lactulose Liq) 30 ml DAILY PRN PO 06/17/17 21:30 (Ambien) 5 mg HS PRN PO 06/18/17 04:30 06/18/17 22:44 (Cardizem Cd) 360 mg DAILY PO 06/18/17 09:45 06/19/17 09:48 (Cordarone) 200 mg DAILY PO 06/18/17 09:45 06/19/17 09:48 (Carafate) 1 gm ACHS PO 06/18/17 12:00 06/19/17 09:47 (Protonix) 40 mg Q12HR PO 06/18/17 10:00 06/19/17 09:47 (Albuterol Neb) 2.5 mg QID NEB PRN INH 06/18/17 18:15 06/19/17 04:08 (Valium) 5 mg TID PRN PO 06/18/17 19:30 06/19/17 10:24 . Family History Mother in her 70s. Father in his early 90s. . Substance Use Tobacco: Smoked up to 3 packs per day throughout her life, quit 25 years ago. Alcohol: Drank wine heavily in the past, none for the last 25 years. Prescription med abuse: None noted. Illicits: None noted. . Psychosocial History She was born in [place], [place] and finished high school there, settling down to be and have 3 children. One son passed recently and she was several years ago. 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 . Spiritual/Cultural Factors Congregation, would except director of child welfare services. . Living Will: Copy in medical record Health Care Surrogate: Copy in medical record Durable Power of Area Development Manager: Never completed Date completed: October 21, 2007 . Health Care Surrogate(s): She lists her healthcare surrogates as her daughter Maral Omalley and/or her son Lorenzo Thomas. . Documented care wishes: Standard living will verbiage. . Today's verbally stated goals: She states "I want to go to [facility]". . Family/friends goals: The daughter Maral and a granddaughter or Tamiko Morin, are both in favor of hospice, while the son Lorenzo is struggling with this decision. He "wishes" that his mother would take her medications, get up and exercise and do better. As his mother is refusing to do all 3 of those things he is struggling with that reality. . Ethical and Legal Issues None noted. . Physical Exam Vital Signs Date Time Temp Pulse Resp B/P (MAP) Pulse Ox O2 Delivery O2 Flow Rate FiO2 06/19/17 12:00 98.9 110 20 171/79 (109) 95 06/19/17 12:00 114 06/19/17 09:00 95 Nasal Cannula 2.00 06/19/17 08:00 108 06/19/17 08:00 98.6 102 24 168/78 (108) 96 06/19/17 04:37 87 06/19/17 04:08 98 Nasal Cannula 2.00 06/19/17 04:00 98.4 79 20 144/65 (91) 98 06/19/17 00:11 105 06/19/17 00:00 100.0 110 20 137/57 (83) 94 06/18/17 20:00 97.6 112 19 160/73 (102) 94 06/18/17 19:58 94 06/18/17 19:46 95 Nasal Cannula 2.00 06/18/17 16:00 96 . Exam CONSTITUTIONAL/GENERAL: This is a moderately obese patient, in no apparent distress. TUBES/LINES/DRAINS: PIV left forearm. SKIN: No jaundice, rashes, or lesions. Ecchymoses on upper extremities. No wounds seen anteriorly. Skin temperature appropriate. Not diaphoretic. HEAD: Atraumatic. Normocephalic. EYES: Pupils equal and round and reactive. Extraocular motions intact. No scleral icterus. No injection or drainage. Fundi not examined. ENT: Hearing grossly normal. Nose without bleeding or purulent drainage. Throat without visible erythema, exudates, masses, or lesions. NECK: Trachea midline. Supple, nontender. No palpable thyroid enlargement or nodularity. CARDIOVASCULAR: S1, S2, irregular rhythm, controlled rate, no rub murmur or gallop. Palpable pulses, less than 3 second capillary refill. RESPIRATORY/CHEST: Symmetric, unlabored respirations. Clear to auscultation. Breath sounds equal bilaterally. No wheezes, rales, or rhonchi. GASTROINTESTINAL: Abdomen soft, tender to palpation, nondistended. No guarding. Bowel sounds present. GENITOURINARY: Without palpable bladder distension. MUSCULOSKELETAL: Extremities without clubbing or cyanosis. 1-2+ dependent edema. No joint tenderness or effusion noted. No calf tenderness. No mottling or clubbing. LYMPHATICS: No palpable cervical or supraclavicular adenopathy. NEUROLOGICAL: Awake and alert. Able to provide history but confused as to time place and purpose. Motor and sensory grossly within normal limits. Follows commands. Moves all extremities. PSYCHIATRIC: Mild agitation. No obvious anxiety/depression. no apparent hallucinations or other psychotic thought process. . Diagnostic Tests Laboratory Laboratory Tests Test 06/17/17 18:55 06/17/17 21:48 06/18/17 00:30 06/18/17 04:16 White Blood Count 7.8 TH/MM3 (4.0-11.0) 7.1 TH/MM3 (4.0-11.0) Red Blood Count 3.94 MIL/MM3 (4.00-5.30) 3.77 MIL/MM3 (4.00-5.30) Hemoglobin 13.6 GM/DL (11.6-15.3) 12.9 GM/DL (11.6-15.3) Hematocrit 39.6 % (35.0-46.0) 38.0 % (35.0-46.0) Mean Corpuscular Volume 100.6 FL (80.0-100.0) 100.9 FL (80.0-100.0) Mean Corpuscular Hemoglobin 34.4 PG (27.0-34.0) 34.3 PG (27.0-34.0) Mean Corpuscular Hemoglobin Concent 34.2 % (32.0-36.0) 34.0 % (32.0-36.0) Red Cell Distribution Width 15.1 % (11.6-17.2) 14.9 % (11.6-17.2) Platelet Count 100 TH/MM3 (150-450) 82 TH/MM3 (150-450) Mean Platelet Volume 8.9 FL (7.0-11.0) 9.1 FL (7.0-11.0) Neutrophils (%) (Auto) 72.6 % (16.0-70.0) 75.4 % (16.0-70.0) Lymphocytes (%) (Auto) 8.7 % (9.0-44.0) 9.8 % (9.0-44.0) Monocytes (%) (Auto) 17.8 % (0.0-8.0) 13.1 % (0.0-8.0) Eosinophils (%) (Auto) 0.1 % (0.0-4.0) 0.2 % (0.0-4.0) Basophils (%) (Auto) 0.8 % (0.0-2.0) 1.5 % (0.0-2.0) Neutrophils # (Auto) 5.7 TH/MM3 (1.8-7.7) 5.3 TH/MM3 (1.8-7.7) Lymphocytes # (Auto) 0.7 TH/MM3 (1.0-4.8) 0.7 TH/MM3 (1.0-4.8) Monocytes # (Auto) 1.4 TH/MM3 (0-0.9) 0.9 TH/MM3 (0-0.9) Eosinophils # (Auto) 0.0 TH/MM3 (0-0.4) 0.0 TH/MM3 (0-0.4) Basophils # (Auto) 0.1 TH/MM3 (0-0.2) 0.1 TH/MM3 (0-0.2) CBC Comment AUTO DIFF AUTO DIFF Differential Comment AUTO DIFF CONFIRMED FINAL DIFF MANUAL Blood Urea Nitrogen 14 MG/DL (7-18) 12 MG/DL (7-18) Creatinine 1.01 MG/DL (0.50-1.00) 0.91 MG/DL (0.50-1.00) Random Glucose 102 MG/DL (74-106) 83 MG/DL (74-106) Calcium Level 8.2 MG/DL (8.5-10.1) 7.6 MG/DL (8.5-10.1) Sodium Level 138 MEQ/L (136-145) 139 MEQ/L (136-145) Potassium Level 3.8 MEQ/L (3.5-5.1) 3.7 MEQ/L (3.5-5.1) Chloride Level 105 MEQ/L (98-107) 106 MEQ/L (98-107) Carbon Dioxide Level 25.2 MEQ/L (21.0-32.0) 25.0 MEQ/L (21.0-32.0) Anion Gap 8 MEQ/L (5-15) 8 MEQ/L (5-15) Estimat Glomerular Filtration Rate 52 ML/MIN (>89) 58 ML/MIN (>89) Total Creatine Kinase 135 U/L (26-192) Creatine Kinase MB 3.0 NG/ML (0.5-3.6) Troponin I 0.03 NG/ML (0.02-0.05) 0.03 NG/ML (0.02-0.05) 0.04 NG/ML (0.02-0.05) B-Type Natriuretic Peptide 191 PG/ML (0-100) Prothrombin Time 13.8 SEC (9.8-11.6) Prothromb Time International Ratio 1.4 RATIO Activated Partial Thromboplast Time 30.1 SEC (24.3-30.1) Differential Total Cells Counted 100 Neutrophils % (Manual) 79 % (16-70) Band Neutrophils % 6 % (0-6) Lymphocytes % 3 % (9-44) Monocytes % 10 % (0-8) Neutrophils # (Manual) 6.2 TH/MM3 (1.8-7.7) Myelocytes 2 % (0-0) Platelet Estimate LOW (NORMAL) Platelet Morphology Comment NORMAL (NORMAL) Total Protein 5.3 GM/DL (6.4-8.2) Albumin 2.3 GM/DL (3.4-5.0) Alkaline Phosphatase 140 U/L (45-117) Aspartate Amino Transf (AST/SGOT) 48 U/L (15-37) Alanine Aminotransferase (ALT/SGPT) 54 U/L (10-53) Total Bilirubin 0.6 MG/DL (0.2-1.0) Test 06/19/17 07:48 White Blood Count 7.1 TH/MM3 (4.0-11.0) Red Blood Count 3.67 MIL/MM3 (4.00-5.30) Hemoglobin 12.7 GM/DL (11.6-15.3) Hematocrit 37.5 % (35.0-46.0) Mean Corpuscular Volume 102.2 FL (80.0-100.0) Mean Corpuscular Hemoglobin 34.7 PG (27.0-34.0) Mean Corpuscular Hemoglobin Concent 33.9 % (32.0-36.0) Red Cell Distribution Width 15.3 % (11.6-17.2) Platelet Count 71 TH/MM3 (150-450) Mean Platelet Volume 9.9 FL (7.0-11.0) Neutrophils (%) (Auto) 71.6 % (16.0-70.0) Lymphocytes (%) (Auto) 13.7 % (9.0-44.0) Monocytes (%) (Auto) 14.2 % (0.0-8.0) Eosinophils (%) (Auto) 0.1 % (0.0-4.0) Basophils (%) (Auto) 0.4 % (0.0-2.0) Neutrophils # (Auto) 5.1 TH/MM3 (1.8-7.7) Lymphocytes # (Auto) 1.0 TH/MM3 (1.0-4.8) Monocytes # (Auto) 1.0 TH/MM3 (0-0.9) Eosinophils # (Auto) 0.0 TH/MM3 (0-0.4) Basophils # (Auto) 0.0 TH/MM3 (0-0.2) CBC Comment AUTO DIFF Differential Comment AUTO DIFF CONFIRMED Platelet Estimate LOW (NORMAL) Platelet Morphology Comment NORMAL (NORMAL) Ovalocytes (NORMAL) Blood Urea Nitrogen 13 MG/DL (7-18) Creatinine 0.88 MG/DL (0.50-1.00) Random Glucose 93 MG/DL (74-106) Total Protein 5.1 GM/DL (6.4-8.2) Albumin 2.1 GM/DL (3.4-5.0) Calcium Level 7.3 MG/DL (8.5-10.1) Magnesium Level 1.8 MG/DL (1.5-2.5) Alkaline Phosphatase 131 U/L (45-117) Aspartate Amino Transf (AST/SGOT) 52 U/L (15-37) Alanine Aminotransferase (ALT/SGPT) 49 U/L (10-53) Total Bilirubin 0.5 MG/DL (0.2-1.0) Sodium Level 140 MEQ/L (136-145) Potassium Level 3.8 MEQ/L (3.5-5.1) Chloride Level 107 MEQ/L (98-107) Carbon Dioxide Level 25.3 MEQ/L (21.0-32.0) Anion Gap 8 MEQ/L (5-15) Estimat Glomerular Filtration Rate 61 ML/MIN (>89) Protein Corrected Calcium 8.4 MG/DL (8.5-10.1) . Result Diagram: 06/19/17 0748 06/19/17 0748 Imaging Last Impressions Chest X-Ray 06/17/17 7253 Signed Impressions: Service Date/Time: Saturday, June 17, 2017 20:02 - CONCLUSION: The lungs are clear. Randall Velarde MD Patient/Family Conference Present at Family Conference: Spoke with daughter Maral, son Lorenzo and granddaughter Tamiko at bedside. Family requested information about hospice. Son Lorenzo is reluctant to pursue that path but is adapting to the realization that this is his mother's wishes and consistent with the goals of care that she outlined in her living will. Family Conference Time (mins): 45 Family Conference Location: Bedside Issues Discussed: * Palliative care role, purpose, approach * Additional medical, psychosocial, and spiritual history * Patients general health, functional status, and cognitive changes in the months leading up to the current hospitalization * Patient/family understanding of the current medical problems * Patient/family understanding of prognosis * Patients goals of care as best understood from advance directives and/or conversations and/or values * Current medical treatment options and benefits/burdens of those options * Likely scenarios comparing ongoing aggressive care with a transition to comfort measures only * Questions answered to the best of my ability * Palliative care contact information provided Assessment and Plan Disease Oriented Problem List: (1) Atrial fibrillation with RVR (2) Renal insufficiency (3) Thrombocytopenia Symptom Scale: (1) Nausea 0-10 Scale: 6 (2) Pain, generalized 0-10 Scale: 6 Pertinent Non-Medical Issues Psychosocial:She was born in [place], [place] and finished high school there, settling down to be and have 3 children. One son passed recently and she was several years ago. 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 Spiritual: Congregation, would except director of child welfare services visits. Legal:She lists her healthcare surrogates as her daughter Maral Omalley and/or her son Lorenzo Thomas. Ethical issues impacting care: None noted. . Important Contacts Son: Lorenzo Thomas Daughter: Shanika Omalley Granddaughter: Tamiko Morin . Prognosis Her prognosis is guarded. She does have atherosclerotic heart disease and has had a stent placed. She has an extensive smoking history with moderate to severe COPD and fairly severe debility requiring [id number] care at this time. She is refusing food fluid and medications which will likely hasten her decline. Family is considering hospice. . Code Status: No Code Plan PLAN: Legal decision maker: At this time the patient exhibits some confusion but has designated her son and her daughter as separate or joint healthcare surrogates. Goals: Comfort CODE STATUS: DNR SYMPTOMS: * Nausea: She states medications make her nauseated and is refusing all including Carafate but she is willing to have Zofran IV. She does have a long history of GERD and gastritis which is likely a contributor to her abdominal pain. Would consider adding Protonix IV. * Pain: Her pain is multifocal to include bedbound status, age-related stiffness , osteoarthritis, gastritis. It is difficult to control as she is refusing oral medications. She is receiving intermittent doses of morphine 2 mg IV as needed. * Anxiety: She is receiving Valium 5 mg orally as needed. She has received 2 doses today. As it is also indicated for muscle spasms this may also assist in managing her pain. SUMMARY This is an 89-year-old female with a recent history of recurrent hospital admissions for an assortment of pain, shortness of breath, nausea, atrial fibrillation with progressive debility. She has recently become unable to get from the bed to the bathroom and it is no longer recommended that she be able to live on her own. Family is in agreement that she does require around- the-clock care and is considering hospice. She has moderately severe COPD from a 3 pack per day habit for 40-50 years. She would be hospice appropriate if goals were consistent. Palliative care will continue to follow the patient during hospital course as condition evolves, to assist patient/decision-maker with understanding of their medical conditions, weighing benefits/burdens of treatment options, for clarification of goals of treatment. Additionally will assist with any symptoms of palliative concern. . Time Spent Time Periods: 14: 15-15: 40 Total Floor Time (mins): 85 Face to Face Time (mins): 45 >50% Counseling/Coord of Care: Yes Thank you for the opportunity to participate in the care of Ms. Thomas. Attestation To help prompt me to consider important information that might be impacting today's encounter and assessment, information from prior notes written by myself or my colleagues may have been "brought forward" into today's note. My signature on this note, however, is an attestation that I personally performed the exam, history, and/or decision-making noted today, and, unless otherwise indicated, the interactions with patient, family, and staff as well as the review of records all occurred today. I also attest that the listed assessment and stated plan reflect my best clinical judgment today based on the combination of historical information, prior notes, and today's exam/ interactions. When time spent is documented, it refers only to time spent today by the signer, or if indicated, combined time spent today by collaborating physician/nurse practitioner. . Margaux Blanco Jun 19, 2017 4:38 pm
[2017-06-19] MEDS: ZOLPIDEM TARTRATE 5 MG TAB PO PRN (22:10)
[2017-06-20] VITALS (11 sets, daily range): BP systolic 136–168; BP diastolic 71–92; PULSE 110–124; RESP 20; TEMP 97.3–99; O2SAT 94–98
--- NOTE | 2017-06-20 01:54 | MB ---
cc: Dar Musa MD DATE OF CONSULT: 06/19/2017 REASON FOR CONSULTATION: Thrombocytopenia. HISTORY OF PRESENT ILLNESS: This is an 89-year-old female who [facility]. She has a past medical history of AFib. She is on Eliquis. She was brought to the emergency room with chest pains. She is currently undergoing cardiology workup. She states that she had presented to [facility] recently and was found to have pneumonia. She was also found to have elevated blood sugars and, according to the patient, she was given insulin. The patient was admitted to the hospital and she was started on amiodarone GTT. She was eventually weaned off of this and is on oral amiodarone. The patient was found to have thrombocytopenia on admission with a platelet count of 100,000, which has now dropped to about 70,000. The patient is somewhat of a poor historian. She states that she follows with her primary care physician. She is not aware of any past history of thrombocytopenia. She has not had any nose bleeds or gum bleeds. No petechiae or bruising. The patient and her family had a meeting with Palliative Care today and they are considering placing the patient in hospice. She states that she has not been very ambulatory at home and spends most of the time in a chair. She denies any dyspnea. No chest pain. No hemoptysis. No lower extremity edema or pain. She does not have any extremity swelling, no bruising, etc. The patient was found to have macrocytosis with MCV of 102.2. REVIEW OF SYSTEMS: Comprehensive review of systems was completed, which was negative, except as stated in the HPI. PAST MEDICAL HISTORY: AFib on Eliquis. PAST SURGICAL HISTORY: Hiatal hernia repair, appendectomy, cholecystectomy, hysterectomy. FAMILY HISTORY: Was reviewed and is noncontributory to this admission. SOCIAL HISTORY: She lives by herself. She denies any alcohol, tobacco or drug abuse. She is a poor historian. MEDICATIONS: Diazepam 5 mg p.o. t.i.d. p.r.n., DuoNeb, pantoprazole 40 mg. p.o. q12 hours, diltiazem 360 mg. p.o. daily, amiodarone 200 mg p.o. daily, apixaban 2.5 mg p.o. b.i.d., Plavix 75 mg p.o. daily, senna 1 tablet p.o. b.i.d., Ambien 5 mg p.o. q.h.s. p.r.n., Zofran 1 mg IV q6 hours p.r.n., Tylenol 650 mg p.o. q6 hours p.r.n., Ethel 5/325 one tablet p.o. q4 hours p.r.n., morphine 2 mg IV q3 hours p.r.n., Dulcolax p.r.n., lactulose p.r.n. ALLERGIES: SHE IS ALLERGIC TO PENICILLIN, SULFA DRUGS AND ASPIRIN. PHYSICAL EXAMINATION: Vital signs: Blood pressure is 152/70, pulses in the 100s, temperature is 99, O2 saturations are 99% in room air. General: Debilitated elderly lady in no apparent distress. HEENT: Pupils are equal, round and reactive to light. EOMI. No oral thrush. No oral lesions. Neck: Is supple, no JVD, no bruits, no lymphadenopathy. Chest: Is clear to auscultation bilaterally. Cardiac: S1-S2, regular rate and rhythm. Abdomen: Is soft, nontender, distended, due to obesity. Bowel sounds are present. Extremities: Without any edema, erythema or cyanosis. Skin: Without any petechiae, lesions or bruises. Neurologic: No focal deficits. Psychiatric: Mood and affect are appropriate. The patient is a poor historian. LABORATORIES: WBCs 7.1, hemoglobin 12.7, platelet count 71. Serum chemistries: Sodium 140, potassium 3.8, chloride 107, CO2 of 25.3, BUN 13, creatinine 0.88, GFR is 61, calcium is 7.3, magnesium is 1.8, total bilirubin 0.5, AST is 52, ALT is 59, alkaline phosphatase is 131, BNP is 191, total protein is 5.1, albumin is 2.1. Coags: PT 13.8, INR 1.4, PTT 30.1. ASSESSMENT AND PLAN: This is an 89-year-old female with a history of AFib who is on chronic anticoagulation. She was brought to the emergency room with chest pain and is currently undergoing cardiology evaluation. She was found to be mildly thrombocytopenic. 1. Mild thrombocytopenia without any evidence of bleeding: It is unclear what her baseline platelet count is. Differential of thrombocytopenia includes underlying infection or sepsis/DIC or consumptive in etiology. There is also a possibility of chronic ITP. I was not able to appreciate any splenomegaly on exam. Other causes of thrombocytopenia include underlying B12 or folate deficiency or any underlying infectious etiology such as hepatitis. We will obtain a DIC panel. It is less likely that she has a DIC, because clinically she does not have any signs or symptoms of infection that may precipitate DIC. We will check LDH and haptoglobin. Will obtain a serum protein electrophoresis. Will obtain B12 and folate levels. Will check a hepatitis panel. This is less likely to be TTP. Will monitor her platelet count. If they drop further, we may consider testing for HIT antibodies; however, the probability of HIT is low. There is the possibility of underlying MDS; she does have macrocytosis, which can be caused by either MDS or low B12 levels. She did not endorse any history of alcohol abuse. 2. The patient is currently considering pursuing hospice. The patient and her family have spoken with the Palliative Care Team. She is DNR. If she chooses to go to hospice, further workup for thrombocytopenia will be limited. Thank you for allowing me to participate in the care of this patient. I will continue to follow this patient along. MD LOR Myers/SOUMYA , 12:48 AM , 01:52 AM ARETHA
[2017-06-20 06:51] LABS: AUTOMATED NEUTROPHIL # 10.6 TH/MM3 (1.8-7.7); BASOPHIL % 0.3 % (0.0-2.0); EOSINOPHIL % 0.1 % (0.0-4.0); HEMATOCRIT 39.2 % (35.0-46.0); HEMOGLOBIN 13.2 GM/DL (11.6-15.3); LYMPH % 7.3 % (9.0-44.0); LYMPHOCYTE # 0.9 TH/MM3 (1.0-4.8); MEAN CELL VOLUME 100.9 FL (80.0-100.0); MEAN CORPUSCULAR HEMOGLOBIN 33.9 PG (27.0-34.0); MEAN CORPUSCULAR HGB CONC 33.6 % (32.0-36.0); MEAN PLATELET VOLUME 9.9 FL (7.0-11.0); MONO % 9.4 % (0.0-8.0); MONOCYTE # 1.2 TH/MM3 (0-0.9); NEUT % 82.9 % (16.0-70.0); PLATELET COUNT 71 TH/MM3 (150-450); RED BLOOD COUNT 3.88 MIL/MM3 (4.00-5.30); RED CELL DISTRIBUTION WIDTH 15.1 % (11.6-17.2); WHITE BLOOD COUNT 12.8 TH/MM3 (4.0-11.0)
[2017-06-20 07:02] LABS: INTERNATIONAL NORMALIZED RATIO 1.4 RATIO; PROTHROMBIN TIME - PATIENT 14.5 SEC (9.8-11.6)
[2017-06-20 07:14] LABS: BICARBONATE 23.4 MEQ/L (21.0-32.0); CALCIUM 7.5 MG/DL (8.5-10.1); CREATININE 0.81 MG/DL (0.50-1.00)
[2017-06-20 07:23] LABS: BANDS 12 % (0-6); BASOPHILS 1 % (0-2); LYMPHOCYTES 11 % (9-44); MONOCYTES 7 % (0-8); MYELOCYTES 3 % (0-0); NEUTROPHIL # MANUAL DIFF 10.4 TH/MM3 (1.8-7.7); POLYS (SEG NEUTROPHILS) 66 % (16-70)
[2017-06-20] MEDS: SODIUM CHLORIDE 0.9% FLUSH 10 ML FLUSH IV FLUSH SCH ×2 (07:25→20:43)
[2017-06-20] MEDS: SUCRALFATE 1 GM TAB PO SCH ×4 (08:13→20:43)
[2017-06-20] MEDS: PANTOPRAZOLE SOD 40 MG DELAYED RELEASE TAB PO SCH ×2 (08:13→20:43)
[2017-06-20] MEDS: AMIODARONE 200 MG TAB PO SCH (08:13)
[2017-06-20] MEDS: DOCUSATE SODIUM 50 MG/SENNA 8.6 MG TAB PO SCH ×2 (08:13→20:43)
[2017-06-20] MEDS: DILTIAZEM-CD 180 MG CAP ER PO SCH (08:13)
[2017-06-20] MEDS: CLOPIDOGREL 75 MG TAB PO SCH (08:14)
[2017-06-20] MEDS: APIXABAN 2.5 MG TABLET PO SCH ×2 (08:14→20:43)
[2017-06-20] MEDS: methylPREDNISolone SOD SUCC 125 MG/2 ML VIAL IV PUSH SCH ×2 (12:17→18:01)
--- NOTE | 2017-06-20 12:22 | HHI.HCPN ---
Reason for visit a. To assist with evaluation and management of symptoms including: Nausea, dyspnea, pain b. To assist medical decision maker(s) with: better understanding of current medical conditions; weighing benefits/burdens of medical treatment options; making medical treatment decisions. Subjective/Interval History Patient seen today to follow-up on symptom management and goals of care. Patient is more alert today, and states that her pain is now controlled. She remains in atrial fibrillation with rapid ventricular response, heart rate 110- 120. She is taking her pills today. She has some intermittent confusion and her answers are inconsistent. She states that she was able to walk around her house and clean prior to admission, the family states that has not happened for a month. The family discussed rehab with the patient and she says she is willing to participate and get stronger. In an earlier conversation with her, prior to the family's arrival, she told me that she did not want to participate in therapy. Family also states she has another insurance policy, not listed in the hospital records. They will bring the card to the hospital to update the records, as it will affect her choices of rehabilitation facilities. Clinical course: * Laboratory: WBC 12.8, hemoglobin 13.2, hematocrit 39.2, platelets 71, prothrombin time 14.5, INR 1.4, fibrinogen 283, sodium 138, potassium 4.0, BUN 11, creatinine 0.81, LDH 928, vitamin B12 1123, RBC folate, copper level, hepatitis B antigen and core IgM antibody pending. Peripheral smear is pending. This is a 89-year-old female lying in bed in no acute distress. Mood and attitude are cheerful, she is cooperative with care. Speech therapy consultation was completed with no signs of dysphasia. She is mildly dyspneic and continues to take her oxygen off. She frequently has to pause during conversation to catch her breath. She is audibly wheezing and mildly tachypneic. Her abdominal pain has decreased from yesterday, however she did agree to take her Carafate today. She has been receiving intermittent doses of morphine for pain control and is currently comfortable. Her last dose of morphine was at 10 PM last night. Her nausea has resolved since yesterday. Her last dose of Zofran was at 10 PM last night, but it remains available for any recurrence. She is oriented to self, place, time, mildly confused as to purpose. She has a very supportive family. . . Family/friend interactions Spoke with the son and granddaughter at length, who now would like her to undergo rehab with physical therapy prior to placement in a long-term facility to maximize her quality of life. They do wish to proceed with placement in 2 hospice services once rehabilitation has been completed. To that end, the patient will require physical and occupational therapy evaluation to determine her level of function and if she qualifies for rehabilitation. They did have an initial visit with hospice and information was provided. Hospice plans to follow-up with the family throughout the hospitalization to continue to provide information as the family transitions. . Advance Directives Living Will: Copy in medical record Health Care Surrogate: Copy in medical record Durable Power of Container Repairer: Never completed Advance Directive Specifics Date completed: October 21, 2007 . Health Care Surrogate(s): She lists her healthcare surrogates as her daughter Maral Omalley and/or her son Lorenzo Thomas. . Documented care wishes: Standard living will verbiage. . Objective Vital Signs Date Time Temp Pulse Resp B/P (MAP) Pulse Ox O2 Delivery O2 Flow Rate FiO2 06/20/17 08:00 98.3 114 20 143/84 (103) 96 06/20/17 04:00 98.2 114 20 160/77 (104) 06/20/17 00:00 99.0 115 20 151/83 (105) 94 06/20/17 00:00 115 06/19/17 21:25 Nasal Cannula 2.00 06/19/17 20:00 99.0 110 19 144/84 (104) 94 06/19/17 16:00 99.0 110 20 152/70 (97) 95 06/19/17 16:00 113 06/19/17 12:00 98.9 110 20 171/79 (109) 95 06/19/17 12:00 114 Intake & Output 06/20/17 06/20/17 07:00 19:00 Intake Total 200 ml Balance 200 ml Intake Oral 200 ml # Voids 5 # Bowel Movements 1 Physical Exam CONSTITUTIONAL/GENERAL: This is a moderately obese patient, in no apparent distress. TUBES/LINES/DRAINS: PIV left forearm. NECK: Trachea midline. Supple, nontender. No palpable thyroid enlargement or nodularity. CARDIOVASCULAR: S1, S2, irregular rhythm, mildly tachycardic rate, no rub murmur or gallop. Palpable pulses, less than 3 second capillary refill. RESPIRATORY/CHEST: Dyspneic, diminished breath sounds with expiratory wheezes, audible without auscultation. GASTROINTESTINAL: Abdomen soft, non-tender to palpation, nondistended. No guarding. Bowel sounds present. GENITOURINARY: Without palpable bladder distension. MUSCULOSKELETAL: Extremities without clubbing or cyanosis. No edema. No joint tenderness or effusion noted. No calf tenderness. No mottling or clubbing. NEUROLOGICAL: Awake and alert. Oriented to self, time and place. Able to provide history but confused as to purpose. Motor and sensory grossly within normal limits. Follows commands. Moves all extremities. PSYCHIATRIC: No agitation. No obvious anxiety/depression. no apparent hallucinations or other psychotic thought process. . Diagnostic Tests Laboratory Laboratory Tests Test 06/17/17 18:55 06/17/17 21:48 06/18/17 00:30 06/18/17 04:16 White Blood Count 7.8 TH/MM3 (4.0-11.0) 7.1 TH/MM3 (4.0-11.0) Red Blood Count 3.94 MIL/MM3 (4.00-5.30) 3.77 MIL/MM3 (4.00-5.30) Hemoglobin 13.6 GM/DL (11.6-15.3) 12.9 GM/DL (11.6-15.3) Hematocrit 39.6 % (35.0-46.0) 38.0 % (35.0-46.0) Mean Corpuscular Volume 100.6 FL (80.0-100.0) 100.9 FL (80.0-100.0) Mean Corpuscular Hemoglobin 34.4 PG (27.0-34.0) 34.3 PG (27.0-34.0) Mean Corpuscular Hemoglobin Concent 34.2 % (32.0-36.0) 34.0 % (32.0-36.0) Red Cell Distribution Width 15.1 % (11.6-17.2) 14.9 % (11.6-17.2) Platelet Count 100 TH/MM3 (150-450) 82 TH/MM3 (150-450) Mean Platelet Volume 8.9 FL (7.0-11.0) 9.1 FL (7.0-11.0) Neutrophils (%) (Auto) 72.6 % (16.0-70.0) 75.4 % (16.0-70.0) Lymphocytes (%) (Auto) 8.7 % (9.0-44.0) 9.8 % (9.0-44.0) Monocytes (%) (Auto) 17.8 % (0.0-8.0) 13.1 % (0.0-8.0) Eosinophils (%) (Auto) 0.1 % (0.0-4.0) 0.2 % (0.0-4.0) Basophils (%) (Auto) 0.8 % (0.0-2.0) 1.5 % (0.0-2.0) Neutrophils # (Auto) 5.7 TH/MM3 (1.8-7.7) 5.3 TH/MM3 (1.8-7.7) Lymphocytes # (Auto) 0.7 TH/MM3 (1.0-4.8) 0.7 TH/MM3 (1.0-4.8) Monocytes # (Auto) 1.4 TH/MM3 (0-0.9) 0.9 TH/MM3 (0-0.9) Eosinophils # (Auto) 0.0 TH/MM3 (0-0.4) 0.0 TH/MM3 (0-0.4) Basophils # (Auto) 0.1 TH/MM3 (0-0.2) 0.1 TH/MM3 (0-0.2) CBC Comment AUTO DIFF AUTO DIFF Differential Comment AUTO DIFF CONFIRMED FINAL DIFF MANUAL Blood Urea Nitrogen 14 MG/DL (7-18) 12 MG/DL (7-18) Creatinine 1.01 MG/DL (0.50-1.00) 0.91 MG/DL (0.50-1.00) Random Glucose 102 MG/DL (74-106) 83 MG/DL (74-106) Calcium Level 8.2 MG/DL (8.5-10.1) 7.6 MG/DL (8.5-10.1) Sodium Level 138 MEQ/L (136-145) 139 MEQ/L (136-145) Potassium Level 3.8 MEQ/L (3.5-5.1) 3.7 MEQ/L (3.5-5.1) Chloride Level 105 MEQ/L (98-107) 106 MEQ/L (98-107) Carbon Dioxide Level 25.2 MEQ/L (21.0-32.0) 25.0 MEQ/L (21.0-32.0) Anion Gap 8 MEQ/L (5-15) 8 MEQ/L (5-15) Estimat Glomerular Filtration Rate 52 ML/MIN (>89) 58 ML/MIN (>89) Total Creatine Kinase 135 U/L (26-192) Creatine Kinase MB 3.0 NG/ML (0.5-3.6) Troponin I 0.03 NG/ML (0.02-0.05) 0.03 NG/ML (0.02-0.05) 0.04 NG/ML (0.02-0.05) B-Type Natriuretic Peptide 191 PG/ML (0-100) Prothrombin Time 13.8 SEC (9.8-11.6) Prothromb Time International Ratio 1.4 RATIO Activated Partial Thromboplast Time 30.1 SEC (24.3-30.1) Differential Total Cells Counted 100 Neutrophils % (Manual) 79 % (16-70) Band Neutrophils % 6 % (0-6) Lymphocytes % 3 % (9-44) Monocytes % 10 % (0-8) Neutrophils # (Manual) 6.2 TH/MM3 (1.8-7.7) Myelocytes 2 % (0-0) Platelet Estimate LOW (NORMAL) Platelet Morphology Comment NORMAL (NORMAL) Total Protein 5.3 GM/DL (6.4-8.2) Albumin 2.3 GM/DL (3.4-5.0) Alkaline Phosphatase 140 U/L (45-117) Aspartate Amino Transf (AST/SGOT) 48 U/L (15-37) Alanine Aminotransferase (ALT/SGPT) 54 U/L (10-53) Total Bilirubin 0.6 MG/DL (0.2-1.0) Test 06/19/17 07:48 06/20/17 05:55 White Blood Count 7.1 TH/MM3 (4.0-11.0) 12.8 TH/MM3 (4.0-11.0) Red Blood Count 3.67 MIL/MM3 (4.00-5.30) 3.88 MIL/MM3 (4.00-5.30) Hemoglobin 12.7 GM/DL (11.6-15.3) 13.2 GM/DL (11.6-15.3) Hematocrit 37.5 % (35.0-46.0) 39.2 % (35.0-46.0) Mean Corpuscular Volume 102.2 FL (80.0-100.0) 100.9 FL (80.0-100.0) Mean Corpuscular Hemoglobin 34.7 PG (27.0-34.0) 33.9 PG (27.0-34.0) Mean Corpuscular Hemoglobin Concent 33.9 % (32.0-36.0) 33.6 % (32.0-36.0) Red Cell Distribution Width 15.3 % (11.6-17.2) 15.1 % (11.6-17.2) Platelet Count 71 TH/MM3 (150-450) 71 TH/MM3 (150-450) Mean Platelet Volume 9.9 FL (7.0-11.0) 9.9 FL (7.0-11.0) Neutrophils (%) (Auto) 71.6 % (16.0-70.0) 82.9 % (16.0-70.0) Lymphocytes (%) (Auto) 13.7 % (9.0-44.0) 7.3 % (9.0-44.0) Monocytes (%) (Auto) 14.2 % (0.0-8.0) 9.4 % (0.0-8.0) Eosinophils (%) (Auto) 0.1 % (0.0-4.0) 0.1 % (0.0-4.0) Basophils (%) (Auto) 0.4 % (0.0-2.0) 0.3 % (0.0-2.0) Neutrophils # (Auto) 5.1 TH/MM3 (1.8-7.7) 10.6 TH/MM3 (1.8-7.7) Lymphocytes # (Auto) 1.0 TH/MM3 (1.0-4.8) 0.9 TH/MM3 (1.0-4.8) Monocytes # (Auto) 1.0 TH/MM3 (0-0.9) 1.2 TH/MM3 (0-0.9) Eosinophils # (Auto) 0.0 TH/MM3 (0-0.4) 0.0 TH/MM3 (0-0.4) Basophils # (Auto) 0.0 TH/MM3 (0-0.2) 0.0 TH/MM3 (0-0.2) CBC Comment AUTO DIFF AUTO DIFF Differential Comment AUTO DIFF CONFIRMED FINAL DIFF MANUAL Platelet Estimate LOW (NORMAL) LOW (NORMAL) Platelet Morphology Comment NORMAL (NORMAL) NORMAL (NORMAL) Ovalocytes (NORMAL) Blood Urea Nitrogen 13 MG/DL (7-18) 11 MG/DL (7-18) Creatinine 0.88 MG/DL (0.50-1.00) 0.81 MG/DL (0.50-1.00) Random Glucose 93 MG/DL (74-106) 88 MG/DL (74-106) Total Protein 5.1 GM/DL (6.4-8.2) Albumin 2.1 GM/DL (3.4-5.0) Calcium Level 7.3 MG/DL (8.5-10.1) 7.5 MG/DL (8.5-10.1) Magnesium Level 1.8 MG/DL (1.5-2.5) Alkaline Phosphatase 131 U/L (45-117) Aspartate Amino Transf (AST/SGOT) 52 U/L (15-37) Alanine Aminotransferase (ALT/SGPT) 49 U/L (10-53) Total Bilirubin 0.5 MG/DL (0.2-1.0) Sodium Level 140 MEQ/L (136-145) 138 MEQ/L (136-145) Potassium Level 3.8 MEQ/L (3.5-5.1) 4.0 MEQ/L (3.5-5.1) Chloride Level 107 MEQ/L (98-107) 105 MEQ/L (98-107) Carbon Dioxide Level 25.3 MEQ/L (21.0-32.0) 23.4 MEQ/L (21.0-32.0) Anion Gap 8 MEQ/L (5-15) 10 MEQ/L (5-15) Estimat Glomerular Filtration Rate 61 ML/MIN (>89) 67 ML/MIN (>89) Protein Corrected Calcium 8.4 MG/DL (8.5-10.1) Differential Total Cells Counted 100 Neutrophils % (Manual) 66 % (16-70) Band Neutrophils % 12 % (0-6) Lymphocytes % 11 % (9-44) Monocytes % 7 % (0-8) Basophils % 1 % (0-2) Neutrophils # (Manual) 10.4 TH/MM3 (1.8-7.7) Myelocytes 3 % (0-0) Blood Smear Pathologist Review Haptoglobin 82 MG/DL (30-200) Prothrombin Time 14.5 SEC (9.8-11.6) Prothromb Time International Ratio 1.4 RATIO Fibrinogen 283 mg/dL (227-377) Lactate Dehydrogenase 928 U/L (84-246) Vitamin B12 Level 1123 PG/ML (193-986) Result Diagram: 06/20/17 0555 06/20/17 0555 Imaging Last Impressions Chest X-Ray 06/17/171852 Signed Impressions: Service Date/Time: Saturday, June 17, 2017 20:02 - CONCLUSION: The lungs are clear. Randall Velarde MD Assessment and Plan Disease Oriented Problem List: (1) Atrial fibrillation with RVR (2) Renal insufficiency (3) Thrombocytopenia Symptom Scale: (1) Nausea 0-10 Scale: 6 (2) Pain, generalized 0-10 Scale: 6 Pertinent Non-Medical Issues Psychosocial:She was born in [place], [place] and finished high school there, settling down to be and have 3 children. One son passed recently and she was several years ago. 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 Spiritual: Protestant, would except technical service rep visits. Legal:She lists her healthcare surrogates as her daughter Maral Omalley and/or her son Lorenzo Thomas. Ethical issues impacting care: None noted. . Important Contacts Son: Lorenzo Thomas Daughter: Shanika Omalley Granddaughter: Tamiko Morin . Prognosis Her prognosis is guarded. She does have atherosclerotic heart disease and has had a stent placed. She has an extensive smoking history with moderate to severe COPD and fairly severe debility requiring [id number] care at this time. She is refusing food fluid and medications which will likely hasten her decline. Family is considering hospice. . Code Status: No Code Plan PLAN: Legal decision maker: At this time the patient exhibits some confusion but has designated her son and her daughter as separate or joint healthcare surrogates. Goals: Comfort CODE STATUS: DNR SYMPTOMS: * Nausea: Resolved. Is now on Protonix 40 mg twice daily and did agree to take Carafate today, Zofran available, not used since yesterday. * Pain: Her pain is multifocal to include bedbound status, age-related stiffness , osteoarthritis, gastritis. It is difficult to control as she is refusing oral medications. She is receiving intermittent doses of morphine 2 mg IV as needed, and is comfortable today. * Anxiety: She is receiving Valium 5 mg orally as needed. She has received 2 doses today. As it is also indicated for muscle spasms this appears to be assisting in managing her pain. * Dyspnea: She is visibly dyspneic and audibly wheezing. She is receiving albuterol nebulizers and Solu-Medrol 60 mg every 6 hours. She is uncomfortable with the nasal cannula and continues to take it off. This may limit her ability to participate in rehabilitation, which is the current family goal. As family wishes patient to undergo short-term rehabilitation to maximize quality of life prior to entering a long-term facility with hospice care, a physical and occupational therapy evaluation is recommended to determine capacity and eligibility. Palliative care will continue to follow the patient during hospital course as condition evolves, to assist patient/decision-maker with understanding of their medical conditions, weighing benefits/burdens of treatment options, for clarification of goals of treatment. Additionally will assist with any symptoms of palliative concern. . Time Spent Time Periods: 10: 30-11: 45 Total Floor Time (mins): 75 Face to Face Time (mins): 50 >50% Counseling/Coord of Care: Yes Attestation To help prompt me to consider important information that might be impacting today's encounter and assessment, information from prior notes written by myself or my colleagues may have been "brought forward" into today's note. My signature on this note, however, is an attestation that I personally performed the exam, history, and/or decision-making noted today, and, unless otherwise indicated, the interactions with patient, family, and staff as well as the review of records all occurred today. I also attest that the listed assessment and stated plan reflect my best clinical judgment today based on the combination of historical information, prior notes, and today's exam/ interactions. When time spent is documented, it refers only to time spent today by the signer, or if indicated, combined time spent today by collaborating physician/nurse practitioner. . Margaux Blanco Jun 20, 2017 12:22
--- NOTE | 2017-06-20 12:30 | HHI.PR ---
Subjective Remarks Follow-up for atrial fibrillation with RVR Patient stated that she feels short of breath. Denies any cough. She also says she feels better though. Her son and granddaughter at the bedside during the interview. Granddaughter stated that patient is confused. Patient able to tell me her name and location. She cannot tell me the date but she does answer questions appropriately. At the moment she is not confused with me. I spoke to palliative care care who stated that this is intermittent. Patient denies any history of COPD but as stated on a note written by her PCP she does have a history of COPD. Patient's granddaughter asking if Cardizem drip can be restarted because patient was not able to take any of her medication. When I asked patient why she is not able to take her medication she cannot explain why. She did not know if this was a swallowing issue versus GI issue. Otherwise no other complaints. Objective Vitals Vital Signs Date Time Temp Pulse Resp B/P (MAP) Pulse Ox O2 Delivery O2 Flow Rate FiO2 06/20/17 08:00 98.3 114 20 143/84 (103) 96 06/20/17 04:00 98.2 114 20 160/77 (104) 06/20/17 00:00 99.0 115 20 151/83 (105) 94 06/20/17 00:00 115 06/19/17 21:25 Nasal Cannula 2.00 06/19/17 20:00 99.0 110 19 144/84 (104) 94 06/19/17 16:00 99.0 110 20 152/70 (97) 95 06/19/17 16:00 113 I/O 06/19/17 06/19/17 06/19/17 06/20/17 06/20/17 06/20/17 07:00 15:00 23:00 07:00 15:00 23:00 Intake Total 240 ml 480 ml 200 ml Balance 240 ml 480 ml 200 ml Intake Oral 240 ml 480 ml 200 ml # Voids 4 3 5 # Bowel Movements 1 2 1 Result Diagram: 06/20/17 0555 06/20/17 0555 Objective Remarks GENERAL: in NAD CARDIOVASCULAR: Regular rate and rhythm without murmurs, gallops, or rubs. RESPIRATORY: Diffuse expiratory wheezing. Also able to hear wheezing without stethoscope. No accessory muscle use. GASTROINTESTINAL: Abdomen soft, non-tender, nondistended. MUSCULOSKELETAL: No cyanosis, or edema. BACK: Nontender without obvious deformity. No CVA tenderness. Procedures None Medications and IVs Current Medications Diltiazem HCl (Cardizem Inj) 15 mg ONCE ONCE IV ; Start 06/17/17 at 19:45; Stop 06/17/17 at 19:46; Status Cancel Diltiazem HCl (Cardizem Inj) 15 mg ONCE ONCE IV Last administered on at 20:38; Start 06/17/17 at 20:00; Stop 06/17/17 at 20:01; Status DC Ondansetron HCl (Zofran Inj) 4 mg ONCE ONCE IV PUSH Last administered on at 20:38; Start 06/17/17 at 20:15; Stop 06/17/17 at 20:16; Status DC Diltiazem HCl 125 mg/Sodium Chloride 125 ml @ 5 mls/hr TITRATE PRN IV Tachycardia Last administered on 06/17/17at 22:11; Start 06/17/17 at 21:15; Stop 06/19/17 at 13:16; Status DC Apixaban (Eliquis) 2.5 mg BID PO Last administered on 06/20/17 08:14; Start at 09:00 Clopidogrel Bisulfate (Plavix) 75 mg DAILY PO Last administered on 06/20/17at 08 :14; Start 06/18/17 at 09:00 Sodium Chloride (NS Flush) 2 ml UNSCH PRN IV FLUSH FLUSH AFTER USING IV ACCESS ; Start 06/17/17 at 21:30 Sodium Chloride (NS Flush) 2 ml BID IV FLUSH Last administered on 06/20/17at 07: 25; Start 06/18/17 at 09:00 Ondansetron HCl (Zofran Inj) 4 mg Q6H PRN IVP NAUSEA OR VOMITING Last administered on 06/19/17at 22:10; Start 06/17/17 at 21:30 Heparin Sodium (Porcine) (Heparin Inj) 5,000 units Q12H SQ ; Start 06/18/17 at 09:00; Status UNV Acetaminophen (Tylenol) 650 mg Q6H PRN PO FEVER/PAIN SCALE 1 TO 2 Last administered on 06/19/17at 02:05; Start 06/17/17 at 21:30 Acetaminophen/ Hydrocodone Bitart ([place] 5-325 Mg) 1 tab Q4H PRN PO PAIN SCALE 3 TO 5; Start 06/17/17 at 21:30 Morphine Sulfate (Morphine Inj) 2 mg Q3H PRN IV PUSH Pain 6-10 Last administered on 06/19/17at 22:03; Start 06/17/17 at 21:30 Senna/Docusate Sodium (Anny-Colace) 1 tab BID PO Last administered on at 08:13; Start 06/18/17 at 09:00 Magnesium Hydroxide (Milk Of Magnesia Liq) 30 ml Q12H PRN PO Mild constipation ; Start 06/17/17 at 21:30 Sennosides (Senokot) 17.2 mg Q12H PRN PO Moderate constipation; Start 06/17/17 at 21:30 Bisacodyl (Dulcolax Supp) 10 mg DAILY PRN RECTAL SEVERE CONSITIPATION; Start at 21:30 Lactulose (Lactulose Liq) 30 ml DAILY PRN PO SEVERE CONSITIPATION; Start at 21:30 Zolpidem Tartrate (Ambien) 5 mg HS PRN PO SLEEP Last administered on 06/19/17at 22:10; Start 06/18/17 at 04:30 Diltiazem HCl (Cardizem Cd) 360 mg DAILY PO Last administered on 06/20/17at 08: 13; Start 06/18/17 at 09:45 Potassium Chloride/Sodium Chloride 1,000 ml @ 42 mls/hr [id number] IV Last administered on 06/18/17at 11:40; Start 06/18/17 at 09:45; Stop 06/19/17 at 09:34 ; Status DC Amiodarone HCl (Cordarone) 200 mg DAILY PO Last administered on 06/20/17at 08:13 ; Start 06/18/17 at 09:45 Sucralfate (Carafate) 1 gm ACHS PO Last administered on 06/20/17at 12:17; Start 06/18/17 at 12:00 Pantoprazole Sodium (Protonix) 40 mg Q12HR PO Last administered on 06/20/17at 08 :13; Start 06/18/17 at 10:00 Albuterol Sulfate (Albuterol Neb) 2.5 mg QID NEB PRN INH SOB/WHEEZING Last administered on 06/19/17at 04:08; Start 06/18/17 at 18:15 Diazepam (Valium) 5 mg TID PRN PO ANXIETY Last administered on 06/19/17at 10:24 ; Start 06/18/17 at 19:30 Albuterol/ Ipratropium (Duoneb Neb) 1 ampule Q4HR NEB NEB ; Start 06/20/17 at 12:00 Methylprednisolone Sodium Succinate (SoluMEDROL INJ) 60 mg Q6HR IV PUSH Last administered on 06/20/17at 12:17; Start 06/20/17 at 12:00 Diltiazem HCl 125 mg/Sodium Chloride 125 ml @ 5 mls/hr TITRATE PRN IV Tachycardia; Start 06/20/17 at 11:00 A/P Problem List: (1) Atrial fibrillation with RVR ICD Code: I48.91 - Unspecified atrial fibrillation Status: Acute (2) Chest pain ICD Code: R07.9 - Chest pain, unspecified (3) Renal insufficiency ICD Code: N28.9 - Disorder of kidney and ureter, unspecified (4) Thrombocytopenia ICD Code: D69.6 - Thrombocytopenia, unspecified Assessment and Plan This is a 89-year-old female who presented with atrial fibrillation with RVR A. fib with RVR: -Patient unable to take p.o. medication. Heart rate is uncontrolled. We will need to restart Cardizem drip. Will get a swallow eval. still waiting for medical record from [facility]. On oral amiodarone and Cardizem but unable to take oral intake. Appreciate cardiology recommendations. Eliquis for anticoagulation. Monitor on telemetry. COPD exacerbation -Patient has audible wheezing and is short of breath. Will schedule duo nebs, continue with as needed albuterol, start Solu-Medrol. Chest x-ray was negative for any infection. Atypical chest pain: - Likely secondary to arrhythmia. Serial cardiac enzymes are negative. Patient has reported allergy to aspirin. Continue Plavix. Renal insufficiency -Improving. Gentle IV fluid hydration. Thrombocytopenia -Stable. No active bleeding. If platelet continues to decrease below 70,000 will need to hold Eliquis. Security Rover following. Elevated LFTs -Mildly elevated. May be secondary to fatty liver disease. There is no active issue. She can follow-up as outpatient for this. DVT prophylaxis: Nicholqukimberly. Discharge Planning Palliative care consult to following. Hospice consulted pending consult. Patient's son and granddaughter at the bedside during the interview. Alessia Abdullahi MD Jun 20, 2017 12:30
[2017-06-20] MEDS: DILTIAZEM INJ 125 MG in SODIUM CHLORIDE 0.9% INJ 100 ML IV PRN ×2 (12:49→22:00)
[2017-06-20] MEDS: RESP: ALBUTEROL 2.5 MG/IPRATROPIUM 0.5 MG NEB (SCH) NEB ×4 (13:40→23:30)
[2017-06-20] MEDS: ONDANSETRON HCL 4 MG/2 ML VIAL IVP PRN (13:59)
[2017-06-20] MEDS: MORPHINE SULFATE 2 MG/ML INJ IV PUSH PRN (14:02)
[2017-06-21] VITALS (12 sets, daily range): BP systolic 126–158; BP diastolic 57–78; PULSE 80–122; RESP 18–24; TEMP 97.1–97.9; O2SAT 93–97
[2017-06-21] MEDS: methylPREDNISolone SOD SUCC 125 MG/2 ML VIAL IV PUSH SCH ×4 (00:23→17:05)
[2017-06-21] MEDS: ZOLPIDEM TARTRATE 5 MG TAB PO PRN (00:57)
[2017-06-21] MEDS: RESP: ALBUTEROL 2.5 MG/IPRATROPIUM 0.5 MG NEB (SCH) NEB ×6 (03:46→23:37)
[2017-06-21] MEDS: DILTIAZEM INJ 125 MG in SODIUM CHLORIDE 0.9% INJ 100 ML IV PRN (05:31)
[2017-06-21 06:17] LABS: HEMATOCRIT 39.2 % (35.0-46.0); HEMOGLOBIN 13.3 GM/DL (11.6-15.3); MEAN CELL VOLUME 99.6 FL (80.0-100.0); MEAN CORPUSCULAR HEMOGLOBIN 33.9 PG (27.0-34.0); MEAN CORPUSCULAR HGB CONC 34.1 % (32.0-36.0); MEAN PLATELET VOLUME 11.6 FL (7.0-11.0); PLATELET COUNT 96 TH/MM3 (150-450); RED BLOOD COUNT 3.93 MIL/MM3 (4.00-5.30); RED CELL DISTRIBUTION WIDTH 14.8 % (11.6-17.2); WHITE BLOOD COUNT 10.4 TH/MM3 (4.0-11.0)
[2017-06-21 07:06] LABS: BICARBONATE 18.7 MEQ/L (21.0-32.0); CALCIUM 7.7 MG/DL (8.5-10.1); CREATININE 1.21 MG/DL (0.50-1.00)
[2017-06-21] MEDS: APIXABAN 2.5 MG TABLET PO SCH ×2 (07:54→21:01)
[2017-06-21] MEDS: AMIODARONE 200 MG TAB PO SCH (07:54)
[2017-06-21] MEDS: SUCRALFATE 1 GM TAB PO SCH ×4 (07:54→21:00)
[2017-06-21] MEDS: PANTOPRAZOLE SOD 40 MG DELAYED RELEASE TAB PO SCH ×2 (07:54→21:01)
[2017-06-21] MEDS: DOCUSATE SODIUM 50 MG/SENNA 8.6 MG TAB PO SCH ×2 (07:54→21:01)
[2017-06-21] MEDS: SODIUM CHLORIDE 0.9% FLUSH 10 ML FLUSH IV FLUSH SCH ×2 (07:55→21:02)
[2017-06-21] MEDS: CLOPIDOGREL 75 MG TAB PO SCH (07:55)
[2017-06-21] MEDS: DILTIAZEM-CD 180 MG CAP ER PO SCH (09:02)
--- NOTE | 2017-06-21 11:44 | HHI.PR ---
Subjective Remarks Follow-up for atrial fibrillation, respiratory failure, COPD exacerbation Patient stated that her breathing has improved drastically but she continues to feel short of breath. She is asking to shower. Positive cough but nonproductive. She has no other complaints. She stated that she took her medication this morning. Objective Vitals Vital Signs Date Time Temp Pulse Resp B/P (MAP) Pulse Ox O2 Delivery O2 Flow Rate FiO2 06/21/17 08:25 105 06/21/17 08:00 97.6 111 18 152/78 (102) 95 06/21/17 07:59 Nasal Cannula 3.00 06/21/17 07:35 93 Nasal Cannula 3.00 06/21/17 05:31 91 06/21/17 04:00 97.8 80 22 126/57 (80) 97 06/21/17 04:00 91 06/21/17 00:00 97.1 122 22 158/72 (100) 97 06/21/17 00:00 103 06/21/17 00:00 Nasal Cannula 2.00 06/20/17 22:00 125 06/20/17 20:41 97 Nasal Cannula 2.00 06/20/17 20:00 118 06/20/17 20:00 97.7 124 20 136/71 (92) 98 06/20/17 16:00 97.3 114 20 152/77 (102) 97 06/20/17 15:57 118 06/20/17 13:48 96 Nasal Cannula 2.00 06/20/17 12:49 115 142/66 06/20/17 12:00 97.7 110 20 143/92 (109) 96 06/20/17 11:51 122 I/O 06/20/17 06/20/17 06/20/17 06/21/17 06/21/17 06/21/17 07:00 15:00 23:00 07:00 15:00 23:00 Intake Total 200 ml 460 ml 500 ml Output Total 500 ml Balance 200 ml 460 ml 0 ml Intake Oral 200 ml 360 ml 400 ml IV Total 100 ml 100 ml Output Urine Total 500 ml # Voids 5 2 # Bowel Movements 1 Result Diagram: 06/21/17 0600 06/21/17 0600 Objective Remarks GENERAL: in NAD CARDIOVASCULAR: Regular rate and rhythm without murmurs, gallops, or rubs. RESPIRATORY: Diffuse expiratory wheezing more anteriorly. Also able to hear wheezing without stethoscope that has improved. No accessory muscle use. GASTROINTESTINAL: Abdomen soft, non-tender, nondistended. MUSCULOSKELETAL: No cyanosis, or edema. BACK: Nontender without obvious deformity. No CVA tenderness. Procedures None Medications and IVs Current Medications Diltiazem HCl (Cardizem Inj) 15 mg ONCE ONCE IV ; Start 06/17/17 at 19:45; Stop 06/17/17 at 19:46; Status Cancel Diltiazem HCl (Cardizem Inj) 15 mg ONCE ONCE IV Last administered on at 20:38; Start 06/17/17 at 20:00; Stop 06/17/17 at 20:01; Status DC Ondansetron HCl (Zofran Inj) 4 mg ONCE ONCE IV PUSH Last administered on at 20:38; Start 06/17/17 at 20:15; Stop 06/17/17 at 20:16; Status DC Diltiazem HCl 125 mg/Sodium Chloride 125 ml @ 5 mls/hr TITRATE PRN IV Tachycardia Last administered on 06/17/17at 22:11; Start 06/17/17 at 21:15; Stop 06/19/17 at 13:16; Status DC Apixaban (Eliquis) 2.5 mg BID PO Last administered on 06/21/17at 07:54; Start at 09:00 Clopidogrel Bisulfate (Plavix) 75 mg DAILY PO Last administered on 06/21/17at 07 :55; Start 06/18/17 at 09:00 Sodium Chloride (NS Flush) 2 ml UNSCH PRN IV FLUSH FLUSH AFTER USING IV ACCESS ; Start 06/17/17 at 21:30 Sodium Chloride (NS Flush) 2 ml BID IV FLUSH Last administered on 06/20/17at 20: 43; Start 06/18/17 at 09:00 Ondansetron HCl (Zofran Inj) 4 mg Q6H PRN IVP NAUSEA OR VOMITING Last administered on 06/20/17at 13:59; Start 06/17/17 at 21:30 Heparin Sodium (Porcine) (Heparin Inj) 5,000 units Q12H SQ ; Start 06/18/17 at 09:00; Status UNV Acetaminophen (Tylenol) 650 mg Q6H PRN PO FEVER/PAIN SCALE 1 TO 2 Last administered on 06/19/17at 02:05; Start 06/17/17 at 21:30 Acetaminophen/ Hydrocodone Bitart ([place] 5-325 Mg) 1 tab Q4H PRN PO PAIN SCALE 3 TO 5; Start 06/17/17 at 21:30 Morphine Sulfate (Morphine Inj) 2 mg Q3H PRN IV PUSH Pain 6-10 Last administered on 06/20/17at 14:02; Start 06/17/17 at 21:30 Senna/Docusate Sodium (Anny-Colace) 1 tab BID PO Last administered on at 07:54; Start 06/18/17 at 09:00 Magnesium Hydroxide (Milk Of Magnesia Liq) 30 ml Q12H PRN PO Mild constipation ; Start 06/17/17 at 21:30 Sennosides (Senokot) 17.2 mg Q12H PRN PO Moderate constipation; Start 06/17/17 at 21:30 Bisacodyl (Dulcolax Supp) 10 mg DAILY PRN RECTAL SEVERE CONSITIPATION; Start at 21:30 Lactulose (Lactulose Liq) 30 ml DAILY PRN PO SEVERE CONSITIPATION; Start at 21:30 Zolpidem Tartrate (Ambien) 5 mg HS PRN PO SLEEP Last administered on 06/21/17at 00:57; Start 06/18/17 at 04:30 Diltiazem HCl (Cardizem Cd) 360 mg DAILY PO Last administered on 06/21/17at 09: 02; Start 06/18/17 at 09:45 Potassium Chloride/Sodium Chloride 1,000 ml @ 42 mls/hr [id number] IV Last administered on 06/18/17at 11:40; Start 06/18/17 at 09:45; Stop 06/19/17 at 09:34 ; Status DC Amiodarone HCl (Cordarone) 200 mg DAILY PO Last administered on 06/21/17at 07:54 ; Start 06/18/17 at 09:45 Sucralfate (Carafate) 1 gm ACHS PO Last administered on 06/21/17at 07:54; Start 06/18/17 at 12:00 Pantoprazole Sodium (Protonix) 40 mg Q12HR PO Last administered on 06/21/17at 07 :54; Start 06/18/17 at 10:00 Albuterol Sulfate (Albuterol Neb) 2.5 mg QID NEB PRN INH SOB/WHEEZING Last administered on 06/19/17at 04:08; Start 06/18/17 at 18:15 Diazepam (Valium) 5 mg TID PRN PO ANXIETY Last administered on 06/19/17at 10:24 ; Start 06/18/17 at 19:30 Albuterol/ Ipratropium (Duoneb Neb) 1 ampule Q4HR NEB NEB Last administered on 06/21/17at 11:18; Start 06/20/17 at 12:00 Methylprednisolone Sodium Succinate (SoluMEDROL INJ) 60 mg Q6HR IV PUSH Last administered on 06/21/17at 06:27; Start 06/20/17 at 12:00 Diltiazem HCl 125 mg/Sodium Chloride 125 ml @ 5 mls/hr TITRATE PRN IV Tachycardia Last administered on 06/21/17at 05:31; Start 06/20/17 at 11:00 A/P Problem List: (1) Atrial fibrillation with RVR ICD Code: I48.91 - Unspecified atrial fibrillation Status: Acute (2) Chest pain ICD Code: R07.9 - Chest pain, unspecified (3) Renal insufficiency ICD Code: N28.9 - Disorder of kidney and ureter, unspecified (4) Thrombocytopenia ICD Code: D69.6 - Thrombocytopenia, unspecified Assessment and Plan This is a 89-year-old female who presented with atrial fibrillation with RVR A. fib with RVR: -Patient now tolerating oral intake. Continue with p.o. Cardizem and amiodarone. Take patient off drip now. Appreciate cardiology recommendations. Eliquis for anticoagulation. Monitor on telemetry. COPD exacerbation -Wheezing has improved but she continues to have significant mild wheezing. Continue with Solu-Medrol, duo nebs, albuterol as needed. Atypical chest pain: -Seemed to resolve. - Likely secondary to arrhythmia. Serial cardiac enzymes are negative. Patient has reported allergy to aspirin. Continue Plavix. Renal insufficiency -Improving. Gentle IV fluid hydration. Thrombocytopenia -Stable. No active bleeding. If platelet continues to decrease below 70,000 will need to hold Eliquis. Parking Enforcer following. Platelets are improving. Elevated LFTs -Mildly elevated. May be secondary to fatty liver disease. There is no active issue. She can follow-up as outpatient for this. DVT prophylaxis: Nicholqukimberly. Discharge Planning Palliative care consult to following. Per conversation with hospice and palliative care patient still wants aggressive treatment but is a DNR. Goal is to get patient to a rehab center then she will be discharged on hospice. Alessia Abdullahi MD Jun 21, 2017 11:44
[2017-06-21] MEDS: DIAZEPAM 5 MG TAB PO PRN ×2 (12:26→17:16)
--- NOTE | 2017-06-21 13:40 | PD.ONC.PN ---
Subjective Subjective Remarks Afebrile overnight. Patient resting in room in nad. very focused on the fact that she received insulin when she was a patient at despite not having a diagnosis of diabetes. wants to know when she can go home. Objective Data Date Time Temp Pulse Resp B/P (MAP) Pulse Ox O2 Delivery O2 Flow Rate FiO2 06/21/17 08:25 105 06/21/17 08:00 97.6 111 18 152/78 (102) 95 06/21/17 07:59 Nasal Cannula 3.00 06/21/17 07:35 93 Nasal Cannula 3.00 06/21/17 05:31 91 06/21/17 04:00 97.8 80 22 126/57 (80) 97 06/21/17 04:00 91 06/21/17 00:00 97.1 122 22 158/72 (100) 97 06/21/17 00:00 103 06/21/17 00:00 Nasal Cannula 2.00 06/20/17 22:00 125 06/20/17 20:41 97 Nasal Cannula 2.00 06/20/17 20:00 118 06/20/17 20:00 97.7 124 20 136/71 (92) 98 06/20/17 16:00 97.3 114 20 152/77 (102) 97 06/20/17 15:57 118 06/20/17 13:48 96 Nasal Cannula 2.00 06/21/17 06/21/17 06/21/17 07:00 15:00 23:00 Intake Total 500 ml Output Total 500 ml Balance 0 ml Result Diagram: 06/21/17 0600 06/21/17 0600 Laboratory Results Laboratory Tests Test 06/21/17 06:00 White Blood Count 10.4 TH/MM3 Red Blood Count 3.93 MIL/MM3 Hemoglobin 13.3 GM/DL Hematocrit 39.2 % Mean Corpuscular Volume 99.6 FL Mean Corpuscular Hemoglobin 33.9 PG Mean Corpuscular Hemoglobin Concent 34.1 % Red Cell Distribution Width 14.8 % Platelet Count 96 TH/MM3 Mean Platelet Volume 11.6 FL Blood Urea Nitrogen 17 MG/DL Creatinine 1.21 MG/DL Random Glucose 173 MG/DL Calcium Level 7.7 MG/DL Sodium Level 135 MEQ/L Potassium Level 3.5 MEQ/L Chloride Level 101 MEQ/L Carbon Dioxide Level 18.7 MEQ/L Anion Gap 15 MEQ/L Estimat Glomerular Filtration Rate 42 ML/MIN Administered Medications Medications (Trade) Dose Ordered Sig/Ellie Route PRN Reason Start Time Stop Time Status Last Admin Dose Admin Apixaban (Eliquis) 2.5 mg BID PO 06/18/17 09:00 06/21/17 07:54 Clopidogrel Bisulfate (Plavix) 75 mg DAILY PO 06/18/17 09:00 06/21/17 07:55 Sodium Chloride (NS Flush) 2 ml BID IV FLUSH 06/18/17 09:00 06/20/17 20:43 Ondansetron HCl (Zofran Inj) 4 mg Q6H PRN IVP NAUSEA OR VOMITING 06/17/17 21:30 06/20/17 13:59 Acetaminophen (Tylenol) 650 mg Q6H PRN PO FEVER/PAIN SCALE 1 TO 2 06/17/17 21:30 06/19/17 02:05 Morphine Sulfate (Morphine Inj) 2 mg Q3H PRN IV PUSH Pain 6-10 06/17/17 21:30 06/20/17 14:02 Senna/Docusate Sodium (Anny-Colace) 1 tab BID PO 06/18/17 09:00 06/21/17 07:54 Zolpidem Tartrate (Ambien) 5 mg HS PRN PO SLEEP 06/18/17 04:30 06/21/17 00:57 Diltiazem HCl (Cardizem Cd) 360 mg DAILY PO 06/18/17 09:45 06/21/17 09:02 Amiodarone HCl (Cordarone) 200 mg DAILY PO 06/18/17 09:45 06/21/17 07:54 Sucralfate (Carafate) 1 gm ACHS PO 06/18/17 12:00 06/21/17 12:20 Pantoprazole Sodium (Protonix) 40 mg Q12HR PO 06/18/17 10:00 06/21/17 07:54 Albuterol Sulfate (Albuterol Neb) 2.5 mg QID NEB PRN INH SOB/WHEEZING 06/18/17 18:15 06/19/17 04:08 Diazepam (Valium) 5 mg TID PRN PO ANXIETY 06/18/17 19:30 06/21/17 12:26 Albuterol/ Ipratropium (Duoneb Neb) 1 ampule Q4HR NEB NEB 06/20/17 12:00 06/21/17 11:18 Methylprednisolone Sodium Succinate (SoluMEDROL INJ) 60 mg Q6HR IV PUSH 06/20/17 12:00 06/21/17 12:17 Objective Remarks GENERAL: Pleasant elderly female, sitting up in bed in [facility]. SKIN: Warm and dry. HEAD: Normocephalic. EYES: No injection or drainage. NECK: Supple, trachea midline. CARDIOVASCULAR: +S1/S2. RESPIRATORY: anterior gomez clear. GASTROINTESTINAL: Abdomen soft, non-tender, nondistended. EXTREMITIES: No cyanosis NEUROLOGICAL: awake and alert. normal speech. moving extremities. Assessment/Plan Problem List: (1) Thrombocytopenia ICD Codes: D69.6 - Thrombocytopenia, unspecified Plan: --Mild thrombocytopenia without any evidence of bleeding --B12 /folate WNL --coags/fibrinogen, no evidence of DIC --LDH elevated, haptoglobin WNL, showing no evidence of hemolysis --hepatitis B negative Assessment 89y/o female admitted with chest pain. Hematology consulted for thrombocytopenia. history of AFib, on Eliquis. Plan 1. check u/s spleen for splenomegaly as cause of chronic thrombocytopenia 2. will also check lower extremities for DVT 3. monitor CBC, no transfusion needed. Attending Statement seen earlier in the afternoon was upset about not being able to hear the TV repeatedly asking for nurse Platelet count improving no evidence of hemolytic process hepatitis panel negative likely has chronic low grade thrombocytopenia and worse during recent hospital admission check u/s of liver. Hold anticoagulation if plt count drops below 50,000 will sign off pls call if any questions Vale Myers Jun 21, 2017 13:40 Dar Musa MD Jun 21, 2017 21:38
--- NOTE | 2017-06-21 15:59 | RADRPT ---
EXAM DATE/TIME: 06/21/2017 14:35 [facility] COMPARISON: No previous studies available for comparison. INDICATIONS : Emboli. MEDICAL HISTORY : Hyperlipidemia. Cardiac disorder. Irregular heartbeat. A Fib. Hypertension. Dyspnea. Hiatal hernia. Diabetes. Anemia. Intestine cancer. SURGICAL HISTORY : Appendectomy.Cholecystectomy. Hysterectomy.Abdominal hernia repair. ENCOUNTER: Initial ACUITY: 1 day PAIN SCORE: 0/10 LOCATION: Bilateral legs. TECHNIQUE: Venous ultrasound of the left and right leg was performed from the inguinal ligament t o the proximal calf. Real-time, color Doppler and spectral tracing, compression and augmentation joseluis hniques were used. FINDINGS: RIGHT LEG: There is normal compressibility of the deep venous system from the inguinal region to the proximal calf. No echogenic clot is seen in the lumen of the common femoral, femoral, popliteal, and posterior tibial veins. There is a normal response of the venous system to proximal and distal augmentation and respiration. LEFT LEG: There is normal compressibility of the deep venous system from the inguinal region to t he proximal calf. No echogenic clot is seen in the lumen of the common femoral, femoral, popliteal, and posterior tibial veins. There is a normal response of the venous system to proximal and distal a ugmentation and respiration. CONCLUSION: No evidence of deep venous thrombosis within the lower extremities. Emerson Nolan MD on June 21, 2017 at 15:57 Board Certified Radiologist. This report was verified electronically.
[2017-06-21] MEDS: RESP: ALBUTEROL 2.5 MG/3 ML NEB (PRN) INH (17:09)
[2017-06-21] MEDS: METOPROLOL TARTRATE 25 MG TAB PO SCH (21:02)
--- NOTE | 2017-06-21 22:43 | RADRPT ---
EXAM DATE/TIME: 06/21/2017 20:32 [facility] COMPARISON: No previous studies available for comparison. INDICATIONS : Increased lab values. MEDICAL HISTORY : Hypertension. Atrial fibrillation. Hiatal hernia. Diabetes. Cancer, intestines. SURGICAL HISTORY : Appendectomy. Cholecystectomy. Hysterectomy. Hernia repair. ENCOUNTER: Initial ACUITY: 1 day PAIN SCORE: 2/10 LOCATION: Right Abdomen. MEASUREMENTS: LIVER: 13.9 cm length COMMON DUCT: 7 mm RIGHT KIDNEY: 9.9 x 4.7 x 4.1 cm SPLEEN: 8.0 cm length FINDINGS: LIVER: Small, heterogeneous and appears nodular. There is small perihepatic ascites. Slow flow in the main p ortal vein. COMMON DUCT: No intraluminal mass or stone visualized. GALLBLADDER: Previous cholecystectomy. PANCREAS: The visualized portions are within normal limits. RIGHT KIDNEY: No hydronephrosis, stone or mass. SPLEEN: No focal lesion. CONCLUSION: 1. Suspected chronic liver disease. There is ascites and slow flow in the main portal vein. 2. No focal lesion demonstrated. Also no splenomegaly. 3. Previous cholecystectomy. Lorenzo Boyd MD on June 21, 2017 at 22:40 Board Certified Radiologist. This report was verified electronically.
[2017-06-22] VITALS (13 sets, daily range): BP systolic 111–169; BP diastolic 61–78; PULSE 79–113; RESP 20–24; TEMP 96.8–98.8; O2SAT 92–95
[2017-06-22] MEDS: methylPREDNISolone SOD SUCC 125 MG/2 ML VIAL IV PUSH SCH ×4 (00:07→19:03)
[2017-06-22] MEDS: MORPHINE SULFATE 2 MG/ML INJ IV PUSH PRN (00:10)
[2017-06-22] MEDS: RESP: ALBUTEROL 2.5 MG/IPRATROPIUM 0.5 MG NEB (SCH) NEB ×6 (03:58→23:36)
[2017-06-22 08:45] LABS: HEMATOCRIT 39.7 % (35.0-46.0); HEMOGLOBIN 13.3 GM/DL (11.6-15.3); MEAN CELL VOLUME 99.6 FL (80.0-100.0); MEAN CORPUSCULAR HEMOGLOBIN 33.4 PG (27.0-34.0); MEAN CORPUSCULAR HGB CONC 33.5 % (32.0-36.0); MEAN PLATELET VOLUME 10.3 FL (7.0-11.0); PLATELET COUNT 116 TH/MM3 (150-450); RED BLOOD COUNT 3.99 MIL/MM3 (4.00-5.30); RED CELL DISTRIBUTION WIDTH 14.8 % (11.6-17.2); WHITE BLOOD COUNT 22.1 TH/MM3 (4.0-11.0)
[2017-06-22 09:17] LABS: BICARBONATE 20.4 MEQ/L (21.0-32.0); CALCIUM 8.3 MG/DL (8.5-10.1); CREATININE 1.6 MG/DL (0.50-1.00)
[2017-06-22] MEDS: CLOPIDOGREL 75 MG TAB PO SCH (09:30)
[2017-06-22] MEDS: DILTIAZEM-CD 180 MG CAP ER PO SCH (09:30)
[2017-06-22] MEDS: SUCRALFATE 1 GM TAB PO SCH ×4 (09:31→20:47)
[2017-06-22] MEDS: METOPROLOL TARTRATE 25 MG TAB PO SCH ×2 (09:31→20:52)
[2017-06-22] MEDS: DOCUSATE SODIUM 50 MG/SENNA 8.6 MG TAB PO SCH ×2 (09:31→20:51)
[2017-06-22] MEDS: AMIODARONE 200 MG TAB PO SCH (09:32)
[2017-06-22] MEDS: PANTOPRAZOLE SOD 40 MG DELAYED RELEASE TAB PO SCH ×2 (09:32→20:52)
[2017-06-22] MEDS: SODIUM CHLORIDE 0.9% FLUSH 10 ML FLUSH IV FLUSH SCH ×2 (09:32→20:47)
[2017-06-22] MEDS: APIXABAN 2.5 MG TABLET PO SCH ×2 (09:32→20:47)
[2017-06-22] MEDS: DIAZEPAM 5 MG TAB PO PRN (09:42)
--- NOTE | 2017-06-22 15:43 | HHI.PR ---
Subjective Remarks Follow-up for atrial fibrillation and COPD exacerbation Patient nurses at the bedside during the interview. She stated that patient will not take her medication. When I asked the patient if she would take her medication she stated now. I try to talk to patient and I brought her son up and she got upset and stated that she makes the decision not her son. Later patient did take medication as directed. She stated her breathing has improved a little bit. Denying chest pain, palpitations, lightheaded dizziness. I spoke to her son Mr. Thomas over the phone in regards to patient's management and prognosis. He stated that he wants to give his mom a few more days to see how she does to see if she can go to rehab versus hospice. Patient's nurse Eric was at the bedside when I spoke to her son over the phone. Objective Vitals Vital Signs Date Time Temp Pulse Resp B/P (MAP) Pulse Ox O2 Delivery O2 Flow Rate FiO2 06/22/17 15:20 92 Nasal Cannula 2.00 06/22/17 12:00 98.8 92 20 118/67 (84) 93 06/22/17 08:05 91 06/22/17 08:00 97.5 104 20 149/75 (99) 94 06/22/17 07:53 Nasal Cannula 2.00 06/22/17 04:03 96.8 104 20 169/76 (107) 95 06/22/17 04:00 104 06/22/17 04:00 Nasal Cannula 2.00 06/22/17 00:05 97.4 113 24 145/78 (100) 94 06/22/17 00:00 109 06/21/17 20:06 97 Nasal Cannula 2.00 06/21/17 20:00 Nasal Cannula 3.00 06/21/17 18:04 97.4 121 24 143/67 (92) 96 06/21/17 17:11 97 Nasal Cannula 2.00 06/21/17 16:00 97.5 111 22 153/71 (98) 95 06/21/17 15:54 112 I/O 06/21/17 06/21/17 06/21/17 06/22/17 06/22/17 06/22/17 07:00 15:00 23:00 07:00 15:00 23:00 Intake Total 500 ml 78 ml 360 ml 480 ml Output Total 500 ml Balance 0 ml 78 ml 360 ml 480 ml Intake Oral 400 ml 360 ml 480 ml IV Total 100 ml 78 ml Output Urine Total 500 ml # Voids 1 # Bowel Movements 0 Result Diagram: 06/22/17 0752 06/22/17 0752 Objective Remarks GENERAL: in NAD CARDIOVASCULAR: Regular rate and rhythm without murmurs, gallops, or rubs. RESPIRATORY: Diffuse expiratory wheezing more anteriorly. Also able to hear wheezing without stethoscope that has improved. No accessory muscle use. GASTROINTESTINAL: Abdomen soft, non-tender, nondistended. MUSCULOSKELETAL: No cyanosis, or edema. BACK: Nontender without obvious deformity. No CVA tenderness. Procedures None Medications and IVs Current Medications Diltiazem HCl (Cardizem Inj) 15 mg ONCE ONCE IV ; Start 06/17/17 at 19:45; Stop 06/17/17 at 19:46; Status Cancel Diltiazem HCl (Cardizem Inj) 15 mg ONCE ONCE IV Last administered on at 20:38; Start 06/17/17 at 20:00; Stop 06/17/17 at 20:01; Status DC Ondansetron HCl (Zofran Inj) 4 mg ONCE ONCE IV PUSH Last administered on at 20:38; Start 06/17/17 at 20:15; Stop 06/17/17 at 20:16; Status DC Diltiazem HCl 125 mg/Sodium Chloride 125 ml @ 5 mls/hr TITRATE PRN IV Tachycardia Last administered on 06/17/17at 22:11; Start 06/17/17 at 21:15; Stop 06/19/17 at 13:16; Status DC Apixaban (Eliquis) 2.5 mg BID PO Last administered on 06/22/17at 09:32; Start at 09:00 Clopidogrel Bisulfate (Plavix) 75 mg DAILY PO Last administered on 06/22/17at 09 :30; Start 06/18/17 at 09:00 Sodium Chloride (NS Flush) 2 ml UNSCH PRN IV FLUSH FLUSH AFTER USING IV ACCESS ; Start 06/17/17 at 21:30 Sodium Chloride (NS Flush) 2 ml BID IV FLUSH Last administered on 06/22/17at 09: 32; Start 06/18/17 at 09:00 Ondansetron HCl (Zofran Inj) 4 mg Q6H PRN IVP NAUSEA OR VOMITING Last administered on 06/20/17 13:59; Start 06/17/17 at 21:30 Heparin Sodium (Porcine) (Heparin Inj) 5,000 units Q12H SQ ; Start 06/18/17 at 09:00; Status UNV Acetaminophen (Tylenol) 650 mg Q6H PRN PO FEVER/PAIN SCALE 1 TO 2 Last administered on 06/19/17at 02:05; Start 06/17/17 at 21:30 Acetaminophen/ Hydrocodone Bitart ([place] 5-325 Mg) 1 tab Q4H PRN PO PAIN SCALE 3 TO 5 Last administered on 06/21/17 21:02; Start 06/17/17 at 21:30 Morphine Sulfate (Morphine Inj) 2 mg Q3H PRN IV PUSH Pain 6-10 Last administered on 06/22/17 00:10; Start 06/17/17 at 21:30 Senna/Docusate Sodium (Anny-Colace) 1 tab BID PO Last administered on 09:31; Start 06/18/17 at 09:00 Magnesium Hydroxide (Milk Of Magnesia Liq) 30 ml Q12H PRN PO Mild constipation ; Start 06/17/17 at 21:30 Sennosides (Senokot) 17.2 mg Q12H PRN PO Moderate constipation; Start 06/17/17 at 21:30 Bisacodyl (Dulcolax Supp) 10 mg DAILY PRN RECTAL SEVERE CONSITIPATION; Start at 21:30 Lactulose (Lactulose Liq) 30 ml DAILY PRN PO SEVERE CONSITIPATION; Start at 21:30 Zolpidem Tartrate (Ambien) 5 mg HS PRN PO SLEEP Last administered on 06/21/17 00:57; Start 06/18/17 at 04:30 Diltiazem HCl (Cardizem Cd) 360 mg DAILY PO Last administered on 06/22/17 09: 30; Start 06/18/17 at 09:45; Stop 06/22/17 at 13:25; Status DC Potassium Chloride/Sodium Chloride 1,000 ml @ 42 mls/hr [id number] IV Last administered on 06/18/17at 11:40; Start 06/18/17 at 09:45; Stop 06/19/17 at 09:34 ; Status DC Amiodarone HCl (Cordarone) 200 mg DAILY PO Last administered on 06/22/17 09:32 ; Start 06/18/17 at 09:45 Sucralfate (Carafate) 1 gm ACHS PO Last administered on 06/22/17 09:31; Start 06/18/17 at 12:00 Pantoprazole Sodium (Protonix) 40 mg Q12HR PO Last administered on 06/22/17 09 :32; Start 06/18/17 at 10:00 Albuterol Sulfate (Albuterol Neb) 2.5 mg QID NEB PRN INH SOB/WHEEZING Last administered on 06/21/17 17:09; Start 06/18/17 at 18:15 Diazepam (Valium) 5 mg TID PRN PO ANXIETY Last administered on 06/22/17 09:42 ; Start 06/18/17 at 19:30 Albuterol/ Ipratropium (Duoneb Neb) 1 ampule Q4HR NEB NEB Last administered on 06/22/17 15:20; Start 06/20/17 at 12:00 Methylprednisolone Sodium Succinate (SoluMEDROL INJ) 60 mg Q6HR IV PUSH Last administered on 06/22/17 13:09; Start 06/20/17 at 12:00 Diltiazem HCl 125 mg/Sodium Chloride 125 ml @ 5 mls/hr TITRATE PRN IV Tachycardia Last administered on 06/21/17 05:31; Start 06/20/17 at 11:00; Stop 06/21/17 at 11:44; Status DC Metoprolol Tartrate (Lopressor) 12.5 mg Q12HR PO Last administered on 09:31; Start 06/21/17 at 21:00 Diltiazem HCl (Cardizem) 90 mg QID PO ; Start 06/23/17 at 09:00 A/P Problem List: (1) Atrial fibrillation with RVR ICD Code: I48.91 - Unspecified atrial fibrillation Status: Acute (2) Chest pain ICD Code: R07.9 - Chest pain, unspecified (3) Renal insufficiency ICD Code: N28.9 - Disorder of kidney and ureter, unspecified (4) Thrombocytopenia ICD Code: D69.6 - Thrombocytopenia, unspecified Assessment and Plan This is a 89-year-old female who presented with atrial fibrillation with RVR A. fib with RVR: -Patient now tolerating oral intake. Continue with p.o. Cardizem and amiodarone. Patient is noncompliant medication. I tried to encourage patient and I suspect to her son in regards to this. Will try to give patient short acting Cardizem so this can be crushed into her food. Appreciate cardiology recommendations. Eliquis for anticoagulation. Monitor on telemetry. COPD exacerbation -Wheezing has improved but she continues to have significant mild wheezing. Continue with Solu-Medrol, duo nebs, albuterol as needed. Atypical chest pain: -Seemed to resolve. - Likely secondary to arrhythmia. Serial cardiac enzymes are negative. Patient has reported allergy to aspirin. Continue Plavix. Renal insufficiency -Improving. Gentle IV fluid hydration. Thrombocytopenia -Stable. No active bleeding. If platelet continues to decrease below 70,000 will need to hold Eliquis. [employer] following. Platelets are improving. Elevated LFTs -Mildly elevated. May be secondary to fatty liver disease. There is no active issue. She can follow-up as outpatient for this. DVT prophylaxis: Eliquis. Discharge Planning Palliative care consult to following. Per conversation with hospice and palliative care patient still wants aggressive treatment but is a DNR. Goal is to get patient to a rehab center then she will be discharged on hospice. Patient is noncompliance with taking medication. I educated patient encourage her to take her oral medication. Per son will continue with treatment and if she does not improve he is considering hospice. Alessia Abdullahi MD Jun 22, 2017 15:43
[2017-06-22] MEDS ORDERED: SODIUM CHLOR 0.9% 250 ML INJ 250 ML IV ONE (16:45)
[2017-06-22] MEDS: ONDANSETRON HCL 4 MG/2 ML VIAL IVP PRN (19:08)
[2017-06-23] VITALS (14 sets, daily range): BP systolic 90–123; BP diastolic 59–71; PULSE 71–94; RESP 17–24; TEMP 95.6–98.6; O2SAT 90–98
[2017-06-23] MEDS: RESP: ALBUTEROL 2.5 MG/IPRATROPIUM 0.5 MG NEB (SCH) NEB ×5 (02:47→21:25)
[2017-06-23] MEDS: ONDANSETRON HCL 4 MG/2 ML VIAL IVP PRN ×2 (03:19→19:26)
[2017-06-23] MEDS: methylPREDNISolone SOD SUCC 125 MG/2 ML VIAL IV PUSH SCH ×5 (03:19→23:27)
[2017-06-23] MEDS: SODIUM CHLORIDE 0.9% FLUSH 10 ML FLUSH IV FLUSH SCH ×2 (07:24→22:06)
[2017-06-23] MEDS: SUCRALFATE 1 GM TAB PO SCH ×4 (08:03→22:10)
[2017-06-23] MEDS: METOPROLOL TARTRATE 25 MG TAB PO SCH ×2 (08:04→22:07)
[2017-06-23] MEDS: AMIODARONE 200 MG TAB PO SCH (08:04)
[2017-06-23] MEDS: DILTIAZEM HCL 90 MG TAB PO SCH ×4 (08:04→22:07)
[2017-06-23] MEDS: PANTOPRAZOLE SOD 40 MG DELAYED RELEASE TAB PO SCH ×2 (08:04→22:10)
[2017-06-23] MEDS: APIXABAN 2.5 MG TABLET PO SCH ×2 (08:04→22:09)
[2017-06-23] MEDS: DOCUSATE SODIUM 50 MG/SENNA 8.6 MG TAB PO SCH ×2 (08:04→22:10)
[2017-06-23] MEDS: CLOPIDOGREL 75 MG TAB PO SCH (08:04)
[2017-06-23 09:59] LABS: BICARBONATE 20.4 MEQ/L (21.0-32.0); CALCIUM 8.1 MG/DL (8.5-10.1); CREATININE 2.03 MG/DL (0.50-1.00)
[2017-06-23] MEDS: SODIUM CHLOR 0.9% 1000 ML INJ 1,000 ML IV SCH (10:10)
--- NOTE | 2017-06-23 11:50 | HHI.PR ---
Subjective Remarks Follow-up for respiratory failure secondary to COPD exacerbation and atrial fib relation with RVR Rate is controlled. Patient stated that she feels like she is dying. She has me to stay with her all day today. I told patient that unfortunately I do to see other patients. I asked if she wanted me to call her son so he can come see her and stay with her. She stated yes. Patient denies any shortness of breathing or cough. She stated that she is not eating or drinking much. She says she feels tired. Objective Vitals Vital Signs Date Time Temp Pulse Resp B/P (MAP) Pulse Ox O2 Delivery O2 Flow Rate FiO2 06/23/17 08:00 97.4 80 20 119/59 (79) 90 06/23/17 04:00 97.8 94 20 115/64 (81) 96 06/23/17 03:46 81 06/23/17 01:35 83 06/23/17 00:00 97.9 88 24 121/71 (88) 92 06/22/17 23:38 94 Nasal Cannula 2.00 06/22/17 20:00 97.1 88 24 111/61 (78) 93 06/22/17 19:55 79 06/22/17 19:00 Nasal Cannula 2.00 06/22/17 16:11 97 06/22/17 16:00 97.4 97 20 120/63 (82) 93 06/22/17 15:20 92 Nasal Cannula 2.00 06/22/17 12:00 98.8 92 20 118/67 (84) 93 I/O 06/22/17 06/22/17 06/22/17 06/23/17 06/23/17 06/23/17 07:00 15:00 23:00 07:00 15:00 23:00 Intake Total 480 ml 730 ml 120 ml Balance 480 ml 730 ml 120 ml Intake Oral 480 ml 480 ml 120 ml IV Total 250 ml # Voids 2 Result Diagram: 06/22/17 0752 06/23/17 0815 Objective Remarks GENERAL: in NAD but lips are very dry. CARDIOVASCULAR: Regular rate and rhythm without murmurs, gallops, or rubs. RESPIRATORY: Diffuse expiratory wheezing more anteriorly. Also able to hear wheezing without stethoscope that has improved. No accessory muscle use. GASTROINTESTINAL: Abdomen soft, non-tender, nondistended. MUSCULOSKELETAL: No cyanosis, or edema. BACK: Nontender without obvious deformity. No CVA tenderness. Procedures None Medications and IVs Current Medications Diltiazem HCl (Cardizem Inj) 15 mg ONCE ONCE IV ; Start 06/17/17 at 19:45; Stop 06/17/17 at 19:46; Status Cancel Diltiazem HCl (Cardizem Inj) 15 mg ONCE ONCE IV Last administered on at 20:38; Start 06/17/17 at 20:00; Stop 06/17/17 at 20:01; Status DC Ondansetron HCl (Zofran Inj) 4 mg ONCE ONCE IV PUSH Last administered on at 20:38; Start 06/17/17 at 20:15; Stop 06/17/17 at 20:16; Status DC Diltiazem HCl 125 mg/Sodium Chloride 125 ml @ 5 mls/hr TITRATE PRN IV Tachycardia Last administered on 06/17/17at 22:11; Start 06/17/17 at 21:15; Stop 06/19/17 at 13:16; Status DC Apixaban (Eliquis) 2.5 mg BID PO Last administered on 06/23/17at 08:04; Start at 09:00 Clopidogrel Bisulfate (Plavix) 75 mg DAILY PO Last administered on 06/23/17at 08 :04; Start 06/18/17 at 09:00 Sodium Chloride (NS Flush) 2 ml UNSCH PRN IV FLUSH FLUSH AFTER USING IV ACCESS ; Start 06/17/17 at 21:30 Sodium Chloride (NS Flush) 2 ml BID IV FLUSH Last administered on 06/23/17at 07: 24; Start 06/18/17 at 09:00 Ondansetron HCl (Zofran Inj) 4 mg Q6H PRN IVP NAUSEA OR VOMITING Last administered on 06/23/17at 03:19; Start 06/17/17 at 21:30 Heparin Sodium (Porcine) (Heparin Inj) 5,000 units Q12H SQ ; Start 06/18/17 at 09:00; Status UNV Acetaminophen (Tylenol) 650 mg Q6H PRN PO FEVER/PAIN SCALE 1 TO 2 Last administered on 06/19/17at 02:05; Start 06/17/17 at 21:30 Acetaminophen/ Hydrocodone Bitart ([place] 5-325 Mg) 1 tab Q4H PRN PO PAIN SCALE 3 TO 5 Last administered on 06/21/17at 21:02; Start 06/17/17 at 21:30 Morphine Sulfate (Morphine Inj) 2 mg Q3H PRN IV PUSH Pain 6-10 Last administered on 06/22/17at 00:10; Start 06/17/17 at 21:30 Senna/Docusate Sodium (Anny-Colace) 1 tab BID PO Last administered on at 08:04; Start 06/18/17 at 09:00 Magnesium Hydroxide (Milk Of Magnesia Liq) 30 ml Q12H PRN PO Mild constipation ; Start 06/17/17 at 21:30 Sennosides (Senokot) 17.2 mg Q12H PRN PO Moderate constipation; Start 06/17/17 at 21:30 Bisacodyl (Dulcolax Supp) 10 mg DAILY PRN RECTAL SEVERE CONSITIPATION; Start at 21:30 Lactulose (Lactulose Liq) 30 ml DAILY PRN PO SEVERE CONSITIPATION; Start at 21:30 Zolpidem Tartrate (Ambien) 5 mg HS PRN PO SLEEP Last administered on 06/21/17at 00:57; Start 06/18/17 at 04:30 Diltiazem HCl (Cardizem Cd) 360 mg DAILY PO Last administered on 06/22/17at 09: 30; Start 06/18/17 at 09:45; Stop 06/22/17 at 13:25; Status DC Potassium Chloride/Sodium Chloride 1,000 ml @ 42 mls/hr [id number] IV Last administered on 06/18/17at 11:40; Start 06/18/17 at 09:45; Stop 06/19/17 at 09:34 ; Status DC Amiodarone HCl (Cordarone) 200 mg DAILY PO Last administered on 06/23/17at 08:04 ; Start 06/18/17 at 09:45 Sucralfate (Carafate) 1 gm ACHS PO Last administered on 06/23/17at 08:03; Start 06/18/17 at 12:00 Pantoprazole Sodium (Protonix) 40 mg Q12HR PO Last administered on 06/23/17at 08 :04; Start 06/18/17 at 10:00 Albuterol Sulfate (Albuterol Neb) 2.5 mg QID NEB PRN INH SOB/WHEEZING Last administered on 06/21/17 17:09; Start 06/18/17 at 18:15 Diazepam (Valium) 5 mg TID PRN PO ANXIETY Last administered on 06/22/17 09:42 ; Start 06/18/17 at 19:30 Albuterol/ Ipratropium (Duoneb Neb) 1 ampule Q4HR NEB NEB Last administered on 06/23/17at 02:47; Start 06/20/17 at 12:00 Methylprednisolone Sodium Succinate (SoluMEDROL INJ) 60 mg Q6HR IV PUSH Last administered on 06/23/17 05:01; Start 06/20/17 at 12:00 Diltiazem HCl 125 mg/Sodium Chloride 125 ml @ 5 mls/hr TITRATE PRN IV Tachycardia Last administered on 06/21/17 05:31; Start 06/20/17 at 11:00; Stop 06/21/17 at 11:44; Status DC Metoprolol Tartrate (Lopressor) 12.5 mg Q12HR PO Last administered on at 08:04; Start 06/21/17 at 21:00 Diltiazem HCl (Cardizem) 90 mg QID PO Last administered on 06/23/17at 08:04; Start 06/23/17 at 09:00 Sodium Chloride 250 ml @ 250 mls/hr BOLUS ONCE IV Last administered on at 17:07; Start 06/22/17 at 16:45; Stop 06/22/17 at 17:44; Status DC Sodium Chloride 1,000 ml @ 50 mls/hr Q20H IV Last administered on 06/23/17at 10 :10; Start 06/23/17 at 10:00 A/P Problem List: (1) Atrial fibrillation with RVR ICD Code: I48.91 - Unspecified atrial fibrillation Status: Acute (2) Chest pain ICD Code: R07.9 - Chest pain, unspecified (3) Renal insufficiency ICD Code: N28.9 - Disorder of kidney and ureter, unspecified (4) Thrombocytopenia ICD Code: D69.6 - Thrombocytopenia, unspecified Assessment and Plan This is a 89-year-old female who presented with atrial fibrillation with RVR A. fib with RVR: -Patient now tolerating oral intake. Continue with p.o. Cardizem and amiodarone. Patient is noncompliant medication. Appreciate cardiology recommendations. Eliquis for anticoagulation. Monitor on telemetry. -Add short acting Cardizem so that this can be crushed patient's foods that she does not like taking pills. COPD exacerbation -Wheezing has improved but she continues to have significant mild wheezing. Continue with Solu-Medrol, duo nebs, albuterol as needed. Atypical chest pain: -Seemed to resolve. - Likely secondary to arrhythmia. Serial cardiac enzymes are negative. Patient has reported allergy to aspirin. Continue Plavix. Renal insufficiency -Creatinine is worsening. Most likely secondary to dehydration. Patient is dry. Her BNP is elevated from initial. Will need to be cautious with fluid but she is dry so we will have to start IV fluids. I spoke to patient's son over the phone in regards to this difficult decision because IV fluids may put her into CHF exacerbation. Thrombocytopenia -Stable. No active bleeding. If platelet continues to decrease below 70,000 will need to hold Eliquis. [employer] following. Platelets are improving. Elevated LFTs -Mildly elevated. May be secondary to fatty liver disease. There is no active issue. She can follow-up as outpatient for this. DVT prophylaxis: Eliquis. Discharge Planning Palliative care consult to following. Per conversation with hospice and palliative care patient still wants aggressive treatment but is a DNR. Goal is to get patient to a rehab center then she will be discharged on hospice. I spoke to patient's son in regards to her hospital course. Son is trying to decide if he wants to place her on hospice. Poor prognosis. Alessia Abdullahi MD Jun 23, 2017 11:50
[2017-06-23] MEDS: MORPHINE SULFATE 2 MG/ML INJ IV PUSH PRN (19:27)
[2017-06-24] VITALS (12 sets, daily range): BP systolic 116–159; BP diastolic 62–79; PULSE 80–102; RESP 17–20; TEMP 97.2–97.7; O2SAT 91–96
[2017-06-24] MEDS: RESP: ALBUTEROL 2.5 MG/IPRATROPIUM 0.5 MG NEB (SCH) NEB ×3 (00:27→08:59)
[2017-06-24] MEDS: MORPHINE SULFATE 2 MG/ML INJ IV PUSH PRN ×3 (00:59→20:45)
[2017-06-24] MEDS: DIAZEPAM 5 MG TAB PO PRN (01:26)
[2017-06-24] MEDS: methylPREDNISolone SOD SUCC 125 MG/2 ML VIAL IV PUSH SCH ×3 (05:16→18:36)
[2017-06-24] MEDS: SODIUM CHLOR 0.9% 1000 ML INJ 1,000 ML IV SCH (05:19)
[2017-06-24] MEDS: SODIUM CHLORIDE 0.9% FLUSH 10 ML FLUSH IV FLUSH SCH ×2 (09:00→20:44)
[2017-06-24] MEDS: CLOPIDOGREL 75 MG TAB PO SCH (09:46)
[2017-06-24] MEDS: SUCRALFATE 1 GM TAB PO SCH ×4 (09:46→20:44)
[2017-06-24] MEDS: PANTOPRAZOLE SOD 40 MG DELAYED RELEASE TAB PO SCH ×2 (09:46→20:44)
[2017-06-24] MEDS: AMIODARONE 200 MG TAB PO SCH (09:47)
[2017-06-24] MEDS: METOPROLOL TARTRATE 25 MG TAB PO SCH ×2 (09:47→20:44)
[2017-06-24] MEDS: DOCUSATE SODIUM 50 MG/SENNA 8.6 MG TAB PO SCH ×2 (09:47→20:44)
[2017-06-24] MEDS: DILTIAZEM HCL 90 MG TAB PO SCH ×4 (09:47→20:44)
[2017-06-24] MEDS: APIXABAN 2.5 MG TABLET PO SCH ×2 (09:47→20:44)
--- NOTE | 2017-06-24 12:08 | HHI.PR ---
Subjective Remarks Follow-up for respiratory failure secondary to COPD exacerbation and atrial fibrillation with RVR Patient very tired today. I did wake her up briefly and she stated that she wanted to sleep. I asked her if she was getting better she shook her head no. I asked if she still felt short of breath she shook her head yes. I spoke to Mr. Thomas her son over the phone in regards to my interview and examination with the patient today. Very poor prognosis and patient is not improving clinically. Mr. Thomas stated that he realizes this and that when he saw her yesterday she stated that she just wants to be left alone and not be messed with. Mr. Thomas also stated that he realizes that she continues to decline. He agrees to hospice. Objective Vitals Vital Signs Date Time Temp Pulse Resp B/P (MAP) Pulse Ox O2 Delivery O2 Flow Rate FiO2 06/24/17 10:20 84 06/24/17 09:17 92 Nasal Cannula 3.00 06/24/17 08:00 97.5 88 20 146/64 (91) 92 06/24/17 04:02 86 06/24/17 04:00 97.7 88 20 153/77 (102) 93 06/24/17 03:15 91 Nasal Cannula 3.00 06/24/17 00:29 97.2 83 17 116/77 (90) 91 06/24/17 00:27 93 Nasal Cannula 3.00 06/23/17 23:55 82 06/23/17 21:27 93 Nasal Cannula 2.00 06/23/17 20:30 Nasal Cannula 2.00 06/23/17 20:00 73 06/23/17 20:00 98.6 77 17 123/66 (85) 95 06/23/17 16:37 74 06/23/17 16:00 97.2 84 20 106/60 (75) 93 06/23/17 15:15 92 06/23/17 12:06 93 Nasal Cannula 2.00 I/O 06/23/17 06/23/17 06/23/17 06/24/17 06/24/17 06/24/17 07:00 15:00 23:00 07:00 15:00 23:00 Intake Total 120 ml 480 ml Balance 120 ml 480 ml Intake Oral 120 ml 480 ml Result Diagram: 06/22/17 0752 06/23/17 7733 Objective Remarks GENERAL: in NAD but is very lethargic and will not wake up CARDIOVASCULAR: Regular rate and rhythm without murmurs, gallops, or rubs. RESPIRATORY: Diffuse expiratory wheezing more anteriorly but improving. Positive for diffuse rhonchi. No accessory muscle use. GASTROINTESTINAL: Abdomen soft, non-tender, nondistended. MUSCULOSKELETAL: No cyanosis, or edema. BACK: Nontender without obvious deformity. No CVA tenderness. Procedures None Medications and IVs Current Medications Diltiazem HCl (Cardizem Inj) 15 mg ONCE ONCE IV ; Start 06/17/17 at 19:45; Stop 06/17/17 at 19:46; Status Cancel Diltiazem HCl (Cardizem Inj) 15 mg ONCE ONCE IV Last administered on at 20:38; Start 06/17/17 at 20:00; Stop 06/17/17 at 20:01; Status DC Ondansetron HCl (Zofran Inj) 4 mg ONCE ONCE IV PUSH Last administered on at 20:38; Start 06/17/17 at 20:15; Stop 06/17/17 at 20:16; Status DC Diltiazem HCl 125 mg/Sodium Chloride 125 ml @ 5 mls/hr TITRATE PRN IV Tachycardia Last administered on 06/17/17at 22:11; Start 06/17/17 at 21:15; Stop 06/19/17 at 13:16; Status DC Apixaban (Eliquis) 2.5 mg BID PO Last administered on 06/24/17at 09:47; Start at 09:00 Clopidogrel Bisulfate (Plavix) 75 mg DAILY PO Last administered on 06/24/17at 09 :46; Start 06/18/17 at 09:00 Sodium Chloride (NS Flush) 2 ml UNSCH PRN IV FLUSH FLUSH AFTER USING IV ACCESS ; Start 06/17/17 at 21:30 Sodium Chloride (NS Flush) 2 ml BID IV FLUSH Last administered on 06/24/17at 09: 00; Start 06/18/17 at 09:00 Ondansetron HCl (Zofran Inj) 4 mg Q6H PRN IVP NAUSEA OR VOMITING Last administered on 06/23/17at 19:26; Start 06/17/17 at 21:30 Heparin Sodium (Porcine) (Heparin Inj) 5,000 units Q12H SQ ; Start 06/18/17 at 09:00; Status UNV Acetaminophen (Tylenol) 650 mg Q6H PRN PO FEVER/PAIN SCALE 1 TO 2 Last administered on 06/19/17at 02:05; Start 06/17/17 at 21:30 Acetaminophen/ Hydrocodone Bitart (Lilly 5-325 Mg) 1 tab Q4H PRN PO PAIN SCALE 3 TO 5 Last administered on 06/21/17at 21:02; Start 06/17/17 at 21:30 Morphine Sulfate (Morphine Inj) 2 mg Q3H PRN IV PUSH Pain 6-10 Last administered on 06/24/17at 05:16; Start 06/17/17 at 21:30 Senna/Docusate Sodium (Anny-Colace) 1 tab BID PO Last administered on at 09:47; Start 06/18/17 at 09:00 Magnesium Hydroxide (Milk Of Magnesia Liq) 30 ml Q12H PRN PO Mild constipation ; Start 06/17/17 at 21:30 Sennosides (Senokot) 17.2 mg Q12H PRN PO Moderate constipation; Start 06/17/17 at 21:30 Bisacodyl (Dulcolax Supp) 10 mg DAILY PRN RECTAL SEVERE CONSITIPATION; Start at 21:30 Lactulose (Lactulose Liq) 30 ml DAILY PRN PO SEVERE CONSITIPATION; Start at 21:30 Zolpidem Tartrate (Ambien) 5 mg HS PRN PO SLEEP Last administered on 06/21/17at 00:57; Start 06/18/17 at 04:30 Diltiazem HCl (Cardizem Cd) 360 mg DAILY PO Last administered on 06/22/17at 09: 30; Start 06/18/17 at 09:45; Stop 06/22/17 at 13:25; Status DC Potassium Chloride/Sodium Chloride 1,000 ml @ 42 mls/hr [id number] IV Last administered on 06/18/17at 11:40; Start 06/18/17 at 09:45; Stop 06/19/17 at 09:34 ; Status DC Amiodarone HCl (Cordarone) 200 mg DAILY PO Last administered on 06/24/17 09:47 ; Start 06/18/17 at 09:45 Sucralfate (Carafate) 1 gm ACHS PO Last administered on 06/24/17 09:46; Start 06/18/17 at 12:00 Pantoprazole Sodium (Protonix) 40 mg Q12HR PO Last administered on 06/24/17 09 :46; Start 06/18/17 at 10:00 Albuterol Sulfate (Albuterol Neb) 2.5 mg QID NEB PRN INH SOB/WHEEZING Last administered on 06/21/17 17:09; Start 06/18/17 at 18:15 Diazepam (Valium) 5 mg TID PRN PO ANXIETY Last administered on 06/24/17 01:26 ; Start 06/18/17 at 19:30 Albuterol/ Ipratropium (Duoneb Neb) 1 ampule Q4HR NEB NEB Last administered on 06/24/17 08:59; Start 06/20/17 at 12:00; Stop 06/24/17 at 11:59; Status DC Methylprednisolone Sodium Succinate (SoluMEDROL INJ) 60 mg Q6HR IV PUSH Last administered on 06/24/17 05:16; Start 06/20/17 at 12:00 Diltiazem HCl 125 mg/Sodium Chloride 125 ml @ 5 mls/hr TITRATE PRN IV Tachycardia Last administered on 06/21/17 05:31; Start 06/20/17 at 11:00; Stop 06/21/17 at 11:44; Status DC Metoprolol Tartrate (Lopressor) 12.5 mg Q12HR PO Last administered on 09:47; Start 06/21/17 at 21:00 Diltiazem HCl (Cardizem) 90 mg QID PO Last administered on 06/24/17 09:47; Start 06/23/17 at 09:00 Sodium Chloride 250 ml @ 250 mls/hr BOLUS ONCE IV Last administered on 17:07; Start 06/22/17 at 16:45; Stop 06/22/17 at 17:44; Status DC Sodium Chloride 1,000 ml @ 50 mls/hr Q20H IV Last administered on 06/24/17at 05 :19; Start 06/23/17 at 10:00; Status Future Hold A/P Problem List: (1) Atrial fibrillation with RVR ICD Code: I48.91 - Unspecified atrial fibrillation Status: Acute (2) Chest pain ICD Code: R07.9 - Chest pain, unspecified (3) Renal insufficiency ICD Code: N28.9 - Disorder of kidney and ureter, unspecified (4) Thrombocytopenia ICD Code: D69.6 - Thrombocytopenia, unspecified Assessment and Plan This is a 89-year-old female who presented with atrial fibrillation with RVR A. fib with RVR: -Patient now tolerating oral intake. Continue with p.o. Cardizem and amiodarone. Patient is noncompliant medication. Appreciate cardiology recommendations. Eliquis for anticoagulation. Monitor on telemetry. -Add short acting Cardizem so that this can be crushed patient's foods that she does not like taking pills. COPD exacerbation -Wheezing has improved and now she has diffuse rhonchi. Continue with Solu- Medrol, duo nebs, albuterol as needed. Atypical chest pain: -Seemed to resolve. - Likely secondary to arrhythmia. Serial cardiac enzymes are negative. Patient has reported allergy to aspirin. Continue Plavix. Renal insufficiency -Creatinine is worsening. Most likely secondary to dehydration. Patient is dry. Her BNP is elevated from initial. Will need to be cautious with fluid but she is dry so we will have to start IV fluids. I spoke to patient's son over the phone in regards to this difficult decision because IV fluids may put her into CHF exacerbation. Thrombocytopenia -Stable. No active bleeding. If platelet continues to decrease below 70,000 will need to hold Eliquis. [employer] following. Platelets are improving. Elevated LFTs -Mildly elevated. May be secondary to fatty liver disease. There is no active issue. She can follow-up as outpatient for this. Metabolic encephalopathy -Patient very lethargic most likely due to her multiple comorbidities. She is not taking any oral intake. And she has been declining. DVT prophylaxis: Eliquis. Discharge Planning Very poor prognosis. Discussed case with Mr. Thomas who I have been contacting throughout the week and he agrees to hospice. Discussed case with case management to notify hospice in regards to his decision. Alessia Abdullahi MD Jun 24, 2017 12:08
[2017-06-24 14:24] LABS: HEMATOCRIT 39.7 % (35.0-46.0); HEMOGLOBIN 13.3 GM/DL (11.6-15.3); MEAN CELL VOLUME 98.8 FL (80.0-100.0); MEAN CORPUSCULAR HEMOGLOBIN 33.1 PG (27.0-34.0); MEAN CORPUSCULAR HGB CONC 33.5 % (32.0-36.0); MEAN PLATELET VOLUME 10.2 FL (7.0-11.0); PLATELET COUNT 200 TH/MM3 (150-450); RED BLOOD COUNT 4.02 MIL/MM3 (4.00-5.30); WHITE BLOOD COUNT 20.9 TH/MM3 (4.0-11.0)
[2017-06-24 14:55] LABS: BICARBONATE 19.8 MEQ/L (21.0-32.0); CALCIUM 8.1 MG/DL (8.5-10.1); CREATININE 2.67 MG/DL (0.50-1.00)
== END 2017-06-24 21:28 | disposition hospice, inpatient (51) | DRG 308 ==
LOC: NEDAMB 17:34 → NEDA 21:14 → N04A 06-18 14:28
PROVIDERS: ADMIT Family Medicine; ATTEND Family Medicine
DX: I48.91 Unspecified atrial fibrillation (principal); J96.90 Respiratory failure, unspecified, unspecified whether with hypoxia or hypercapnia; G93.41 Metabolic encephalopathy; D69.6 Thrombocytopenia, unspecified; E86.0 Dehydration; I11.0 Hypertensive heart disease with heart failure; I50.9 Heart failure, unspecified; J44.1 Chronic obstructive pulmonary disease with (acute) exacerbation; K76.0 Fatty (change of) liver, not elsewhere classified; D75.89 Other specified diseases of blood and blood-forming organs; F41.9 Anxiety disorder, unspecified; I25.10 Atherosclerotic heart disease of native coronary artery without angina pectoris; N28.9 Disorder of kidney and ureter, unspecified; K58.9 Irritable bowel syndrome, unspecified; K21.9 Gastro-esophageal reflux disease without esophagitis; M19.90 Unspecified osteoarthritis, unspecified site; R05 Cough; R11.0 Nausea; K29.70 Gastritis, unspecified, without bleeding; R07.9 Chest pain, unspecified; Z51.5 Encounter for palliative care; Z95.5 Presence of coronary angioplasty implant and graft; Z86.79 Personal history of other diseases of the circulatory system; Z87.891 Personal history of nicotine dependence; Z79.01 Long term (current) use of anticoagulants; Z91.19 Patient's noncompliance with other medical treatment and regimen; Z86.73 Personal history of transient ischemic attack (TIA), and cerebral infarction without residual deficits; Z88.6 Allergy status to analgesic agent; Z66 Do not resuscitate
CPT/HCPCS: 71045; 76705; 80048; 80053; 80074; 82525; 82550; 82552; 82607; 82747; 83010; 83615; 83735; 83880; 84484; 85007; 85025; 85027; 85384; 85610; 85730; 86705; 87340; 93005; 93970; 94640; 94664; 96374; 96375; J2270; J2405; J2930; J3480; J7030; J7050; J7613